=== PATIENT | male | born 1955 | race Caucasian/White ===

== ENCOUNTER 2019-08-07 05:46 | Day surgery (SDC) | payer BC ==
[2019-08-07] MEDS ORDERED: Lactated Ringers 1,000 ML IV SCH (07:00)
[2019-08-07] MEDS ORDERED: DIPRIVAN 200 MG/20 ML IV ONE ×2 (08:20→08:25)
[2019-08-07 09:14] VITALS: O2SAT 98
--- NOTE | 2019-08-07 09:19 | OP ---
SURGERY DATE/TIME: 08/07/2019 0805 PREOPERATIVE DIAGNOSIS: Screening colonoscopy. POSTOPERATIVE DIAGNOSIS: Sessile colon polyp x2. PROCEDURE: Colonoscopy. SURGEON: Lex Roland M.D. ANESTHESIA: MAC by Marco Antonio Cohen CRNA. ESTIMATED BLOOD LOSS: Minimal. SPECIMENS: Two hot forceps polypectomies, one from the sigmoid and one from the rectum. DESCRIPTION OF PROCEDURE: After informed written consent was obtained, the patient was taken to the endoscopy suite. He underwent monitored anesthesia after he was placed in left lateral decubitus position. Digital rectal exam showed normal sphincter tone and no internal lesions. The scope was inserted into the rectum and sequentially the entire colonic mucosa was traversed. The level of cecum was reached and verified with direct visualization of ileocecal valve. Upon withdrawal a small sessile polyp was encountered in the proximal sigmoid colon and was grasped with forceps, cauterized and removed in its entirety with good hemostasis following removal. Upon further withdrawal and inspection, there was another small sessile polyp just beyond the third valve of Kamara in the proximal rectum. It was grasped likewise with forceps, cauterized and removed in its entirety with good hemostasis. No other lesions were encountered. The scope was removed and the patient was transferred to the recovery room in good condition.
[2019-08-07 09:29] VITALS: BP 131/85; PULSE 84
== END 2019-08-07 09:35 | disposition home or self-care (01) ==
LOC: SDC 05:46
PROVIDERS: ATTEND Family Medicine
DX: Z12.11 Encounter for screening for malignant neoplasm of colon (principal); K63.5 Polyp of colon; D12.8 Benign neoplasm of rectum
CPT/HCPCS: 88305; J2704

== ENCOUNTER 2022-10-04 06:57 | Inpatient (IN) | payer MEDICARE ==
[2022-10-04] MEDS ORDERED: DUONEB 0.5-3 MG/3 ml Neb IH ONE ×2 (07:12→07:13)
--- NOTE | 2022-10-04 07:35 | ERPHSYRPT ---
- History of Present Illness Source: patient Exam Limitations: clinical condition Patient Subjective Stated Complaint: Pt states "I have been short of breath for a couple weeks but it has gotten really bad in the last couple of days." Triage Nursing Assessment: Pt presented alert and oriented X 3, skin pwd. Pt ambulates with an upright steady gait, ablet o speak in clear full sentences pt tachypneic with low O2 sats in the mid 80s. Pt stated he has COPD. Physician History: 67 yo wm w h/o COPD/HTN/DM/Afib on eliquis/cirrhosis/tobacco abuse/alcohol abuse presents w progressive dyspnea x 2 wks which is worse upon exertion. Pt has had a worsening cough over the last 2 wks which has become more productive. He has coryza but denies fever/N/V/D/melena/hematochezia/hemoptysis. Pt states that his lower extremities have become edematous also but denies h/o CHF. He is not on home O2 but uses CPAP at night. Timing/Duration: other (2 wks) Activities at Onset: rest Severity of Dyspnea-Max: severe Severity of Dyspnea-Current: severe Possible Cause: frequent episodes Modifying Factors: Improves With: activity, coughing Associated Symptoms: cough, edema, ankle swelling, leg swelling, productive cough, No fever Allergies/Adverse Reactions: No Known Drug Allergies Allergy (Verified 08/07/19 06:13) Home Medications: Amlodipine Besylate 5 mg PO DAILY 10/04/22 [History] Apixaban [Eliquis 5 mg Tablet] 5 mg PO BID 10/04/22 [History] Budesonide/Formoterol Fumarate [Budesonide-Formoterol 160-4.5] 1 unit IH DAILY 10/04/22 [History] Ipratropium/Albuterol Sulfate [Iprat-Albut 0.5-3(2.5) mg/3 ml] 1 unit IH QID 10/04/22 [History] Losartan/Hydrochlorothiazide [Hyzaar 100-12.5 Tablet] 5 tab PO DAILY 10/04/22 [History] Metoprolol Succinate [Toprol Xl] 200 mg PO DAILY 10/04/22 [History] Omeprazole 20 mg PO DAILY 10/04/22 [History] glipiZIDE [Glipizide] 5 mg PO DAILY 10/04/22 [History] Hx Tetanus, Diphtheria Vaccination/Date Given: Yes Hx Influenza Vaccination/Date Given: Yes Hx Pneumococcal Vaccination/Date Given: No Immunizations Up to Date: Yes Travel Risk - International Travel Have you traveled outside of the country in past 3 weeks: No - Coronavirus Screening Symptoms: Shortness of Breath Close contact with a COVID-19 positive Pt in past 14-21 Days: No - Vaccine Status Have you recieved a Covid-19 vaccination: Yes 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: [employer] - Vaccination Dates Date of 2cond Vaccination (if applicable): 2020 - Review of Systems Constitutional: No Symptoms, Lethargy, Malaise Eyes: No Symptoms Ears, Nose, & Throat: No Symptoms, Nose Congestion, Nose Discharge Respiratory: No Symptoms, Cough, Dyspnea, Dyspnea on Exertion (MALDONADO) Cardiac: No Symptoms Abdominal/Gastrointestinal: No Symptoms Genitourinary Symptoms: No Symptoms Musculoskeletal: No Symptoms Skin: No Symptoms Neurological: No Symptoms Psychological: No Symptoms Endocrine: No Symptoms Hematologic/Lymphatic: No Symptoms Immunological/Allergic: No Symptoms - Past Medical History Pertinent Past Medical History: Yes Neurological History: No Pertinent History ENT History: No Pertinent History Cardiac History: Arrhythmia, High Cholesterol, Hypertension Respiratory History: COPD Endocrine Medical History: Diabetes Type II, Liver Disease Musculoskeletal History: Fractures GI Medical History: Diverticulitis, Gallbladder Disease, Other History: No Pertinent History Psycho-Social History: No Pertinent History Male Reproductive Disorders: No Pertinent History Other Medical History: YEARS AGO FX RIGHT ANKLE. - Past Surgical History Past Surgical History: Yes Neuro Surgical History: No Pertinent History Cardiac: No Pertinent History Respiratory: Chest Surgery Gastrointestinal: No Pertinent History, Cholecystectomy Genitourinary: No Pertinent History Musculoskeletal: No Pertinent History Male Surgical History: No Pertinent History Other Surgical History: had non-cancerous nodule removed from left lung years ago and has pen in place from the surgery. - Social History Smoking Status: Current every day smoker How long have you smoked: 50 years Exposure to second hand smoke: Yes Drug Use: none Patient Lives Alone: No - Nursing Vital Signs Nursing Vital Signs: Initial Vital Signs Temperature 97.7 F 10/04/22 06:58 Pulse Rate 104 H 10/04/22 06:58 Respiratory Rate 28 H 10/04/22 06:58 Blood Pressure 118/89 10/04/22 06:58 O2 Sat by Pulse Oximetry 85 L 10/04/22 06:58 Pain Scale Pain Intensity 0 Tachy/hypoxic/Tachyneic - Physical Exam General Appearance: mild distress Eye Exam: PERRL/EOMI, eyes nml inspection Ears, Nose, Throat Exam: hearing grossly normal, normal ENT inspection, normal pharynx Neck Exam: normal inspection, non-tender, supple, full range of motion, No Brudzinski, No Kernig's, No meningismus, No carotid bruit Respiratory Exam: respiratory distress (Mild-moderate), diminished breath sounds (Decreased BS B), prolonged expirations Cardiovascular/Chest Exam: other (Afib-Irregular rhythm, but rarte controlled) Abdominal/Gastrointestinal Exam: soft (Morbidly obese), normal bowel sounds, No tenderness Extremity Exam: no calf tenderness, pedal edema (2+ pre-tibial edema) Peripheral Pulses Exam: carotid (R): 2+, carotid (L): 2+ Neurologic Exam: alert, oriented x 3, cooperative, 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 nml as tested, normal mood/affect, nml station & gait Skin Exam: normal color, warm, dry Lymphatic Exam: No adenopathy SpO2 Interpretation: normal SpO2: 95 O2 Delivery: Oxymask (4L Oxymask) - Course Nursing assessment & vital signs reviewed: Yes EKG Interpreted by Me: RATE (Afib/No P waves/Normal QT-QTc/Qwaves 3 and AVF/RBBB/No acute ST segment changes) - Radiology Exams Chest X-ray Interpretation: Interpreted by me (Hazy bibasilar infiltraes) - CT Exams Chest CT Interpretation: Discussed w/radiologist (CT chest wo/RLL opacities/atelectasis) Ordered Tests: Active Orders 24 hr Category Date Time Status EKG-ER Only STAT Care 10/04/22 07:12 Completed Consistent Carbohydrate Diet 2000 Calorie Diet 10/04/22 Lunch Active CHEST 1 VIEW (PORTABLE) Stat Exams 10/04/22 07:12 Completed CHEST WITHOUT CONTRAST [CT] Stat Exams 10/04/22 08:24 Completed Alcohol [ETHYL ALCOHOL] Stat Lab 10/04/22 07:30 Completed BLOOD CULTURE Stat Lab 10/04/22 07:30 Received CBC W DIFF AM.LAB Lab 10/05/22 04:00 Ordered CBC W DIFF Stat Lab 10/04/22 07:30 Completed CMP AM.LAB Lab 10/05/22 04:00 Ordered CMP Stat Lab 10/04/22 07:30 Completed Lactic Acid Stat Lab 10/04/22 07:59 Completed NT PRO BNP Stat Lab 10/04/22 07:30 Completed PROTIME WITH INR Stat Lab 10/04/22 07:30 Completed PTT Stat Lab 10/04/22 07:30 Completed TROPONIN Q4H Lab 10/04/22 07:30 Completed TROPONIN Q4H Lab 10/04/22 11:15 Ordered TROPONIN Q4H Lab 10/04/22 15:15 Ordered Transfer Order Routine Transfer 10/04/22 Completed Medication Summary Generic Name Dose Route Start Last Admin Trade Name Freq PRN Reason Stop Dose Admin Albuterol/Ipratropium 3 ml 10/04/22 11:00 Ipratropium/Albuterol Sulfate 3 Ml Ampul.Neb IH 11/03/22 10:59 Q4HRT VANESSA Sodium Chloride 1,000 mls @ 100 mls/hr 10/04/22 09:45 Sodium Chloride 0.9% 1000 Ml IV 11/03/22 09:44 .Q10H VANESSA Ceftriaxone Sodium/Dextrose 1 g in 50 mls @ 100 mls/hr 10/05/22 10:00 Rocephin 1 Gm-D5w 50 Ml Bag IV 10/08/22 09:59 Q24H10 VANESSA Azithromycin 500 mg in 250 mls @ 250 mls/hr 10/05/22 10:00 Zithromax 500 Mg/ 250 Ml Nacl Premix IV 11/04/22 09:59 Q24H10 VANESSA Insulin Human Lispro 0 unit 10/04/22 09:33 Insulin Lispro 1 Unit SQ 11/03/22 09:32 UD PRN HYPERGLYCEMIA Ondansetron HCl 4 mg 10/04/22 09:33 Ondansetron Hcl 4 Mg/2 Ml Vial IV 11/03/22 09:32 Q6H PRN PRN NAUSEA/VOMITING Pantoprazole Sodium 40 mg 10/04/22 11:00 Pantoprazole 40 Mg Vial IV 11/03/22 10:59 Q24H10 VANESSA Discontinued Medications Generic Name Dose Route Start Last Admin Trade Name Freq PRN Reason Stop Dose Admin Albuterol Sulfate 2.5 mg 10/04/22 08:19 10/04/22 08:23 Albuterol Sulfate 2.5 Mg/3 Ml Neb IH 10/04/22 08:20 2.5 mg STAT ONE Administration Albuterol Sulfate Confirm 10/04/22 08:22 Albuterol Sulfate 2.5 Mg/3 Ml Neb Administered 10/04/22 08:23 Dose 2.5 mg IH .STK-MED ONE Albuterol/Ipratropium 3 ml 10/04/22 07:13 10/04/22 07:15 Ipratropium/Albuterol Sulfate 3 Ml Ampul.Neb IH 10/04/22 07:14 3 ml STAT ONE Administration Albuterol/Ipratropium Confirm 10/04/22 07:12 Ipratropium/Albuterol Sulfate 3 Ml Ampul.Neb Administered 10/04/22 07:13 Dose 3 ml IH .STK-MED ONE Ceftriaxone Sodium/Dextrose 1 g in 50 mls @ 100 mls/hr 10/04/22 08:02 10/04/22 08:47 Rocephin 1 Gm-D5w 50 Ml Bag IV 10/04/22 08:31 Infused STAT STA Infusion Ceftriaxone Sodium/Dextrose Confirm 10/04/22 08:11 Rocephin 1 Gm-D5w 50 Ml Bag Administered 10/04/22 08:12 Dose 1 g in 50 mls @ ud IV .STK-MED ONE Azithromycin 500 mg in 250 mls @ 250 mls/hr 10/04/22 09:15 10/04/22 09:20 Zithromax 500 Mg/ 250 Ml Nacl Premix IV 10/04/22 10:14 250 mls/hr STAT STA 250 mls/hr Administration Azithromycin Confirm 10/04/22 09:17 Zithromax 500 Mg/ 250 Ml Nacl Premix Administered 10/04/22 09:18 Dose 500 mg in 250 mls @ ud IV .STK-MED ONE Lab/Rad Data: Laboratory Result Diagrams 10/04/22 07:30 10/04/22 07:30 Laboratory Results 10/04/22 10/04/22 10/04/22 Range/Units 07:59 07:35 07:30 WBC (4.0-10.5) x10^3/uL RBC (4.1-5.6) x10^6/uL Hgb (12.5-18.0) g/dL Hct (42-50) % MCV (78-100) fL MCH (26-32) pg MCHC (32-36) g/dL RDW (11.5-14.0) % Plt Count (150-450) x10^3/uL MPV (7.5-11.0) fL Gran % (36.0-66.0) % Immature Gran % (Auto) (0.00-0.4) % Nucleat RBC Rel Count (0.00-0.1) % Eos # (Auto) (0-0.5) x10^3/uL Immature Gran # (Auto) (0.00-0.03) x10^3u/L Absolute Lymphs (auto) (1.0-4.6) x10^3/uL Absolute Monos (auto) (0.0-1.3) x10^3/uL Absolute Nucleated RBC (0.00-0.01) x10^3u/L Lymphocytes % (24.0-44.0) % Monocytes % (0.0-12.0) % Eosinophils % (0.00-5.0) % Basophils % (0.0-0.4) % Absolute Granulocytes (1.4-6.9) x10^3/uL Basophils # (0-0.4) x10^3/uL PT (9.4-12.5) SECONDS INR (0.8-3.0) APTT (25.1-36.5) SECONDS Sodium (137-145) mmol/L Potassium (3.5-5.1) mmol/L Chloride (98-107) mmol/L Carbon Dioxide (22-30) mmol/L Anion Gap (5-15) MEQ/L BUN (9-20) mg/dL Creatinine (0.66-1.25) mg/dL Estimated GFR ML/MIN Glucose (74-106) mg/dL Lactic Acid 1.9 (0.4-2.0) Calcium (8.4-10.2) mg/dL Total Bilirubin (0.2-1.3) mg/dL AST (17-59) U/L ALT (0-50) U/L Alkaline Phosphatase (38-126) U/L Troponin I (0.000-0.034) ng/mL NT-Pro-B Natriuret Pep (0-900) pg/mL Serum Total Protein (6.3-8.2) g/dL Albumin (3.5-5.0) g/dL Ethyl Alcohol < 10 (0-10) mg/dL Influenza Type A Ag NEGATIVE (NEGATIVE) Influenza Type B Ag NEGATIVE (NEGATIVE) RSV (PCR) NEGATIVE (Negative) SARS-CoV-2 (PCR) NEGATIVE (NEGATIVE) 10/04/22 10/04/22 10/04/22 Range/Units 07:30 07:30 07:30 WBC (4.0-10.5) x10^3/uL RBC (4.1-5.6) x10^6/uL Hgb (12.5-18.0) g/dL Hct (42-50) % MCV (78-100) fL MCH (26-32) pg MCHC (32-36) g/dL RDW (11.5-14.0) % Plt Count (150-450) x10^3/uL MPV (7.5-11.0) fL Gran % (36.0-66.0) % Immature Gran % (Auto) (0.00-0.4) % Nucleat RBC Rel Count (0.00-0.1) % Eos # (Auto) (0-0.5) x10^3/uL Immature Gran # (Auto) (0.00-0.03) x10^3u/L Absolute Lymphs (auto) (1.0-4.6) x10^3/uL Absolute Monos (auto) (0.0-1.3) x10^3/uL Absolute Nucleated RBC (0.00-0.01) x10^3u/L Lymphocytes % (24.0-44.0) % Monocytes % (0.0-12.0) % Eosinophils % (0.00-5.0) % Basophils % (0.0-0.4) % Absolute Granulocytes (1.4-6.9) x10^3/uL Basophils # (0-0.4) x10^3/uL PT 12.4 (9.4-12.5) SECONDS INR 1.19 (0.8-3.0) APTT 35.0 (25.1-36.5) SECONDS Sodium 138 (137-145) mmol/L Potassium 4.0 (3.5-5.1) mmol/L Chloride 100 (98-107) mmol/L Carbon Dioxide 31 H (22-30) mmol/L Anion Gap 11.2 (5-15) MEQ/L BUN 29 H (9-20) mg/dL Creatinine 0.76 (0.66-1.25) mg/dL Estimated GFR > 60.0 ML/MIN Glucose 125 H (74-106) mg/dL Lactic Acid (0.4-2.0) Calcium 9.2 (8.4-10.2) mg/dL Total Bilirubin 1.90 H (0.2-1.3) mg/dL AST 27 (17-59) U/L ALT 26 (0-50) U/L Alkaline Phosphatase 87 (38-126) U/L Troponin I < 0.012 (0.000-0.034) ng/mL NT-Pro-B Natriuret Pep 766 (0-900) pg/mL Serum Total Protein 7.6 (6.3-8.2) g/dL Albumin 4.1 (3.5-5.0) g/dL Ethyl Alcohol (0-10) mg/dL Influenza Type A Ag (NEGATIVE) Influenza Type B Ag (NEGATIVE) RSV (PCR) (Negative) SARS-CoV-2 (PCR) (NEGATIVE) 10/04/22 Range/Units 07:30 WBC 13.4 H (4.0-10.5) x10^3/uL RBC 5.26 (4.1-5.6) x10^6/uL Hgb 16.1 (12.5-18.0) g/dL Hct 50.6 H (42-50) % MCV 96.2 (78-100) fL MCH 30.6 (26-32) pg MCHC 31.8 L (32-36) g/dL RDW 13.9 (11.5-14.0) % Plt Count 271 (150-450) x10^3/uL MPV 10.1 (7.5-11.0) fL Gran % 81.8 H (36.0-66.0) % Immature Gran % (Auto) 0.4 (0.00-0.4) % Nucleat RBC Rel Count 0.0 (0.00-0.1) % Eos # (Auto) 0.01 (0-0.5) x10^3/uL Immature Gran # (Auto) 0.06 H (0.00-0.03) x10^3u/L Absolute Lymphs (auto) 0.83 L (1.0-4.6) x10^3/uL Absolute Monos (auto) 1.50 H (0.0-1.3) x10^3/uL Absolute Nucleated RBC 0.00 (0.00-0.01) x10^3u/L Lymphocytes % 6.2 L (24.0-44.0) % Monocytes % 11.2 (0.0-12.0) % Eosinophils % 0.1 (0.00-5.0) % Basophils % 0.3 (0.0-0.4) % Absolute Granulocytes 10.97 H (1.4-6.9) x10^3/uL Basophils # 0.04 (0-0.4) x10^3/uL PT (9.4-12.5) SECONDS INR (0.8-3.0) APTT (25.1-36.5) SECONDS Sodium (137-145) mmol/L Potassium (3.5-5.1) mmol/L Chloride (98-107) mmol/L Carbon Dioxide (22-30) mmol/L Anion Gap (5-15) MEQ/L BUN (9-20) mg/dL Creatinine (0.66-1.25) mg/dL Estimated GFR ML/MIN Glucose (74-106) mg/dL Lactic Acid (0.4-2.0) Calcium (8.4-10.2) mg/dL Total Bilirubin (0.2-1.3) mg/dL AST (17-59) U/L ALT (0-50) U/L Alkaline Phosphatase (38-126) U/L Troponin I (0.000-0.034) ng/mL NT-Pro-B Natriuret Pep (0-900) pg/mL Serum Total Protein (6.3-8.2) g/dL Albumin (3.5-5.0) g/dL Ethyl Alcohol (0-10) mg/dL Influenza Type A Ag (NEGATIVE) Influenza Type B Ag (NEGATIVE) RSV (PCR) (Negative) SARS-CoV-2 (PCR) (NEGATIVE) - Progress Progress: improved Progress Note: 10/04/22 09:18 Duoneb/Albuterol x1 w improvement in air flow Blood cultures x2 Rocephin 1gm IV Zithromax 500mg IV 10/04/22 09:[address] Paz Discussed with Dr.: Whitley (Obs per Dr. Paz) Counseled pt/family regarding: lab results, diagnosis, need for follow-up, rad results - Departure Departure Disposition: Observation Clinical Impression: Pneumonia, COPD (chronic obstructive pulmonary disease) Condition: Stable Critical Care Time: Yes Critical Care Time(excluding separately billable procedures): Critical 30-74 mins
[2022-10-04 07:37] LABS: Absolute Neutrophil Ct (ANC) 10.97 x10^3/uL (1.4-6.9); Basophil (Absolute #) 0.04 x10^3/uL (0-0.4); Eosinophil % 0.1 % (0.00-5.0); Eosinophil (Absolute #) 0.01 x10^3/uL (0-0.5); Hematocrit 50.6 % (42-50); Hemoglobin 16.1 g/dL (12.5-18.0); Lymphocyte (Absolute #) 0.83 x10^3/uL (1.0-4.6); Lymphocytes % 6.2 % (24.0-44.0); Mean Cell Volume 96.2 fL (78-100); Mean Corpuscular Hemoglobin 30.6 pg (26-32); Mean Corpuscular Hgb Concent. 31.8 g/dL (32-36); Mean Platelet Volume 10.1 fL (7.5-11.0); Monocytes % 11.2 % (0.0-12.0); Neutrophil % 81.8 % (36.0-66.0); Platelet Count 271 x10^3/uL (150-450); Red Blood Count 5.26 x10^6/uL (4.1-5.6); Red Cell Distribution Width 13.9 % (11.5-14.0); White Blood Count 13.4 x10^3/uL (4.0-10.5)
[2022-10-04 07:52] LABS: INR 1.19 (0.8-3.0); PROTIME 12.4 SECONDS (9.4-12.5)
[2022-10-04 07:59] LABS: ALBUMIN 4.1 g/dL (3.5-5.0); ALKALINE PHOSPHATASE 87 U/L (38-126); ANION GAP 11.2 MEQ/L (5-15); BLOOD UREA NITROGEN 29 mg/dL (9-20); CHLORIDE 100 mmol/L (98-107); Calcium 9.2 mg/dL (8.4-10.2); Carbon Dioxide 31 mmol/L (22-30); Creatinine 1 0.76 mg/dL (0.66-1.25); EST GLOMERULAR FILTRATION RATE > 60.0 ML/MIN; Glucose 125 mg/dL (74-106); NT PRO BNP 766 pg/mL (0-900); SGOT/AST 27 U/L (17-59); SGPT/ALT 26 U/L (0-50); SODIUM 138 mmol/L (137-145); Total Protein 7.6 g/dL (6.3-8.2)
[2022-10-04] MEDS ORDERED: ROCEPHIN 1 Gm-D5w 50 ml Bag** 1 G/50 ML IVPB IV STA (08:02)
[2022-10-04] MEDS ORDERED: ROCEPHIN 1 Gm-D5w 50 ml Bag** 1 G/50 ML IVPB IV ONE (08:11)
[2022-10-04] MEDS ORDERED: PROVENTIL 2.5 MG/3 ML NEB IH ONE ×2 (08:19→08:22)
[2022-10-04 08:27] LABS: INFLUENZA A NEGATIVE (NEGATIVE); INFLUENZA B NEGATIVE (NEGATIVE); RESPIRATORY SYNCTIAL VIRUS NEGATIVE (Negative); SARS-CoV-2 Xpert Express NEGATIVE (NEGATIVE)
--- NOTE | 2022-10-04 09:14 | XRAY ---
Indication: Short of breath and congestion. COPD. Multiple contiguous axial images obtained through the chest without contrast. Comparison: None Study degraded by respiration artifact. Query subtle right lower lobe interstitial alveolar opacities. Right middle lobe and lingula demonstrates subsegmental atelectasis. No consolidation/effusion. Heart not enlarged with prominent epicardiac fat. Small right hilar calcified node. Incidental left hemidiaphragm elevation. Bony thorax intact. Limited upper abdomen demonstrates numerous hepatic/splenic calcified granulomas, and 1.8 cm left adrenal adenoma, and incompletely visualized left renal cysts, largest 1.5 cm upper pole. Impression: 1. Respiration artifact. Query subtle right lower lobe interstitial alveolar opacities. 2. Right middle lobe and lingula subsegmental atelectasis. 3. Chronic findings including prominent epicardiac fat, left hemidiaphragm elevation, left adrenal adenoma, left renal cysts, chronic bony findings, and old granulomatous disease.
[2022-10-04] MEDS ORDERED: Zithromax 500 MG/ 250 ML NaCl Premix 500 MG/250 ML IVPB IV STA (09:15)
--- NOTE | 2022-10-04 09:16 | XRAY ---
Indication: Cough and short of breath. Hallucinations. Comparison: None Portable chest demonstrates left hemidiaphragm elevation with hazy bibasilar infiltrates versus atelectasis. Remaining heart and bony thorax unremarkable.
[2022-10-04] MEDS ORDERED: Zithromax 500 MG/ 250 ML NaCl Premix 500 MG/250 ML IVPB IV ONE (09:17)
[2022-10-04] MEDS ORDERED: Zofran 4 MG/2 ML VIAL IV PRN (09:33)
[2022-10-04] MEDS ORDERED: PROTONIX 40 MG IV IV SCH (11:00)
[2022-10-04] MEDS: DUONEB 0.5-3 MG/3 ml Neb IH SCH ×4 (11:18→22:53)
[2022-10-04] MEDS ORDERED: PATIENT OWN MEDICATION IH SCH (13:00)
[2022-10-04] MEDS: hydroDIURIL 25 MG PO SCH (14:28)
[2022-10-04] MEDS: NORVASC 5 MG PO SCH (14:29)
[2022-10-04] MEDS: Toprol Xl 100 MG PO SCH (14:30)
[2022-10-04] MEDS: Cozaar 50 MG PO SCH (14:31)
[2022-10-04] MEDS: ELIQUIS 2.5 MG TABLET PO SCH ×2 (14:32→20:04)
[2022-10-04] MEDS: Protonix 40MG Tablet PO SCH (14:32)
[2022-10-04] MEDS: PATIENT OWN MEDICATION IH SCH (18:40)
[2022-10-04] MEDS ORDERED: solu-MEDROL ONE ×2 (18:58→23:40)
[2022-10-04] MEDS ORDERED: Sterile H2O 10 ml IJ ONE ×2 (18:58→23:40)
[2022-10-04] MEDS: solu-MEDROL 125 MG, Sterile H2O 10 ml 2 ML IV SCH ×4 (19:12→23:40)
[2022-10-04] MEDS: MOTRIN 600 MG PO PRN (20:06)
[2022-10-04] MEDS: Ativan 2 MG/1 ML VIAL IV PRN (20:07)
[2022-10-05] MEDS: Ativan 2 MG/1 ML VIAL IV PRN ×5 (01:15→20:29)
[2022-10-05] MEDS ORDERED: PHARMACY DOSING REQUIRED: VANCOMYCIN MC ONE (02:00)
[2022-10-05] MEDS ORDERED: VANCOMYCIN 2 GRAM/400 ML BAG 2 GM/400 ML PIGGYBACK IV SCH (03:00)
[2022-10-05 03:35] LABS: A-aADO2 143; ABG HEMOGLOBIN 16.3; ABG POTASSIUM 4.6 (3.5-5.1); ARTERIAL BLD GAS O2 SATURATION 88.6 % (95-100); ARTERIAL BLOOD GAS BASE EXCESS 4.1 (-2.0-2.0); ARTERIAL BLOOD GAS FIO2 45 %; ARTERIAL BLOOD GAS PO2 62 mmHg (75-100); CARBOXYHEMOGLOBIN 1.2 % THgb (0.0-6.9); HCO3- 36.3 (22-28); HGB O2 SAT 87.4 g/dF (94-100); Methhemoglobin 0.1 % (1.4-1.5)
[2022-10-05 03:36] LABS: ARTERIAL BLOOD GAS PCO2 93 mmHg (35-45)
[2022-10-05 03:37] LABS: ABG SITE RIGHT RADIAL; ALLEN TEST OK? YES
[2022-10-05] MEDS: DUONEB 0.5-3 MG/3 ml Neb IH SCH ×6 (03:44→22:18)
[2022-10-05] MEDS ORDERED: Lasix 40 MG/4 ML IV ONE ×2 (03:45→06:00)
[2022-10-05] MEDS ORDERED: Lasix 40 MG/4 ML ONE (03:46)
[2022-10-05 04:59] LABS: Absolute Neutrophil Ct (ANC) 9.43 x10^3/uL (1.4-6.9); Basophil (Absolute #) 0.02 x10^3/uL (0-0.4); Eosinophil (Absolute #) 0 x10^3/uL (0-0.5); Hematocrit 50.2 % (42-50); Hemoglobin 15.5 g/dL (12.5-18.0); Lymphocyte (Absolute #) 0.42 x10^3/uL (1.0-4.6); Lymphocytes % 4.2 % (24.0-44.0); Mean Corpuscular Hemoglobin 30.6 pg (26-32); Mean Corpuscular Hgb Concent. 30.9 g/dL (32-36); Mean Platelet Volume 9.8 fL (7.5-11.0); Monocyte (Absolute #) 0.13 x10^3/uL (0.0-1.3); Monocytes % 1.3 % (0.0-12.0); Neutrophil % 93.6 % (36.0-66.0); Platelet Count 283 x10^3/uL (150-450); Red Blood Count 5.07 x10^6/uL (4.1-5.6); Red Cell Distribution Width 14.2 % (11.5-14.0); White Blood Count 10.1 x10^3/uL (4.0-10.5)
[2022-10-05 05:31] LABS: ALBUMIN 3.7 g/dL (3.5-5.0); ALKALINE PHOSPHATASE 72 U/L (38-126); ANION GAP 7.8 MEQ/L (5-15); BLOOD UREA NITROGEN 41 mg/dL (9-20); CHLORIDE 98 mmol/L (98-107); Calcium 8.9 mg/dL (8.4-10.2); Carbon Dioxide 36 mmol/L (22-30); Creatinine 1 1.03 mg/dL (0.66-1.25); EST GLOMERULAR FILTRATION RATE > 60.0 ML/MIN; Glucose 169 mg/dL (74-106); Potassium 4.8 mmol/L (3.5-5.1); SGOT/AST 23 U/L (17-59); SGPT/ALT 27 U/L (0-50); SODIUM 138 mmol/L (137-145); Total Protein 7.1 g/dL (6.3-8.2)
[2022-10-05] MEDS ORDERED: solu-MEDROL ONE (05:36)
[2022-10-05] MEDS ORDERED: Sterile H2O 10 ml IJ ONE (05:36)
[2022-10-05] MEDS: solu-MEDROL 125 MG, Sterile H2O 10 ml 2 ML IV SCH ×6 (05:38→17:01)
[2022-10-05 06:47] LABS: Slide Review 1 YES
[2022-10-05] MEDS: PATIENT OWN MEDICATION IH SCH (07:05)
[2022-10-05] MEDS: Sodium Chloride 0.9% 1000 ML 1,000 ML IV SCH ×3 (07:53→09:55)
[2022-10-05 08:14] LABS: A-aADO2 172; ABG HEMOGLOBIN 16.3; ABG POTASSIUM 4.4 (3.5-5.1); ARTERIAL BLD GAS O2 SATURATION 94.7 % (95-100); ARTERIAL BLOOD GAS BASE EXCESS 7.3 (-2.0-2.0); ARTERIAL BLOOD GAS FIO2 50 %; ARTERIAL BLOOD GAS PO2 77 mmHg (75-100); ARTERIAL BLOOD GAS pH 7.26 (7.35-7.45); CARBOXYHEMOGLOBIN 0.9 % THgb (0.0-6.9); HCO3- 38.6 (22-28); HGB O2 SAT 93.8 g/dF (94-100)
[2022-10-05 08:15] LABS: ARTERIAL BLOOD GAS PCO2 86 mmHg (35-45)
[2022-10-05 08:58] LABS: ABG SITE LEFT RADIAL
--- NOTE | 2022-10-05 09:09 | XRAY ---
Indication: Pulmonary edema. Comparison: One day earlier Portable chest again demonstrates bibasilar infiltrates/atelectasis, improved on the right and worsened on the left. New small left effusion. Heart not enlarged. Again chronic left hemidiaphragm elevation. Comment: Preliminary interpretation made by [facility]. No critical discrepancy.
[2022-10-05] MEDS: hydroDIURIL 25 MG PO SCH (09:45)
[2022-10-05] MEDS: ELIQUIS 2.5 MG TABLET PO SCH (09:45)
[2022-10-05] MEDS: Cozaar 50 MG PO SCH (09:45)
[2022-10-05] MEDS: NORVASC 5 MG PO SCH (09:45)
[2022-10-05] MEDS: Toprol Xl 100 MG PO SCH (09:46)
[2022-10-05] MEDS: Protonix 40MG Tablet PO SCH (09:46)
[2022-10-05] MEDS: PROTONIX 40 MG IV IV SCH (09:55)
[2022-10-05] MEDS: Furosemide 100mg/10 ml Vial IV SCH (09:55)
[2022-10-05] MEDS ORDERED: [UNRECOGNIZED DRUG - OTHER] PO SCH (10:00)
[2022-10-05] MEDS ORDERED: NON-FORMULARY ITEM (Omeprazole [Omeprazole] 20 MG Capsule.Dr) PO SCH (10:00)
[2022-10-05] MEDS ORDERED: ROCEPHIN 1 Gm-D5w 50 ml Bag** 1 G/50 ML IVPB IV SCH (10:00)
[2022-10-05] MEDS ORDERED: Zithromax 500 MG/ 250 ML NaCl Premix 500 MG/250 ML IVPB IV SCH (10:00)
[2022-10-05] MEDS ORDERED: HYDROCHLOROTHIAZIDE PO SCH (10:00)
[2022-10-05] MEDS ORDERED: LOSARTAN PO SCH (10:00)
[2022-10-05] MEDS ORDERED: METOPROLOL SUCCINATE 200 MG PO SCH (10:00)
[2022-10-05] MEDS ORDERED: ENOXAPARIN SODIUM SQ SCH (10:00)
[2022-10-05] MEDS ORDERED: NON-FORMULARY ITEM (Budesonide/Formoterol Fumarate [Budesonide-Formoterol 160-4.5] 10.2 GM IH SCH (10:00)
[2022-10-05] MEDS: PIPERACILLIN/TAZOBACTAM 4.5 GM in Sodium Chloride 100ML MINI-BAG PLUS 100 ML IV SCH ×2 (10:02→16:41)
[2022-10-05] MEDS: MORPHINE SULFATE 2 MG INJ IV PRN ×3 (10:04→22:16)
--- NOTE | 2022-10-05 11:32 | PCM.HP ---
History of Present Illness - Chief Complaint Chief Complaint: COPD, RESP FAILURE History of Present Illness: is a 67 year old male pt of mine seen earlier this morning who came in through ER with COPD exacerbation and respiratory distress. He has a PMHx COPD, afib (on Eliquis), COPD, HTN, DMII, cirrhosis of the liver, and EtOH abuse. He had been sick for over a week but his couldn't convince him to come to the hospital. He had increased cough and had to stand up in order to breathe, so hasn't really slept in about a week. The history is per the medical record and the pt's , who is at bedside. Apparently he was also having MALDONADO and productive cough. Did have 1-2+ pretibial edema in ER. RLL infiltrate seen on CT, so he was started on rocephin and zithromax. Pt apparently drinks 2 fifths of alcohol a week, a fact that he was able to hide from his until he started feeling so ill and not leaving the house. Last night he was anxious and was given some ativan; he laid down and soon had sx of pulmonary edema (coughing up frothy pink) - was given lasix 40mg IV x 1, which was repeated a couple of hours later. Had 500mL out of urine last night with catheter placement, and another 400 cc since then. His BNP was normal on admission but elevated this morning. His oxygenation decreased to 70s with lying down, so he was started on CPAP. This was insufficient, so he was started on Bipap and is now on AVAPS. Dr. Benson was consulted, thank you, and per ABG results changed settings to RR 22, PEEP 8, TV 550 (on 65%). WBC 13.4 on admission, 10.1 now (gran 93.6%). Blood culture returned + GPC so IV vancomycin was added to antibiotic regimen. This morning, rocephin and zithromax were stopped and IV zosyn was started in addition to the vancomycin. - Review of Systems All Other Systems: Unable due to condition Medications & Allergies Home Medications: Home Medication List Amlodipine Besylate 5 mg PO DAILY 10/04/22 [History Confirmed 10/04/22] Apixaban [Eliquis 5 mg Tablet] 5 mg PO BID 10/04/22 [History Confirmed 10/04/22] Budesonide/Formoterol Fumarate [Budesonide-Formoterol 160-4.5] 1 unit IH DAILY 10/04/22 [History Confirmed 10/04/22] Ipratropium/Albuterol Sulfate [Iprat-Albut 0.5-3(2.5) mg/3 ml] 1 unit IH QID 10/04/22 [History Confirmed 10/04/22] Losartan/Hydrochlorothiazide [Hyzaar 100-12.5 Tablet] 1 tab PO DAILY 10/04/22 [History Confirmed 10/04/22] Metoprolol Succinate [Toprol Xl] 200 mg PO DAILY 10/04/22 [History Confirmed 10/04/22] Omeprazole 20 mg PO DAILY 10/04/22 [History Confirmed 10/04/22] glipiZIDE [Glipizide] 5 mg PO DAILY 10/04/22 [History Confirmed 10/04/22] Allergies/Adverse Reactions: Allergies Allergy/AdvReac Type Severity Reaction Status Date / Time No Known Drug Allergies Allergy Verified 08/07/19 06:13 - Past Medical History Past Medical History: Yes Neurological History: No Pertinent History ENT History: No Pertinent History Cardiac History: Arrhythmia, High Cholesterol, Hypertension Respiratory History: COPD Endocrine Medical History: Diabetes Type II, Liver Disease Musculoskelatal History: Fractures GI Medical History: Diverticulitis, Gallbladder Disease, Other History: No Pertinent History Pyscho-Social History: No Pertinent History Male Reproductive Disorders: No Pertinent History Comment: YEARS AGO FX RIGHT ANKLE. - Past Surgical History Past Surgical History: Yes Neuro Surgical History: No Pertinent History Cardiac History: No Pertinent History Respiratory Surgery: Chest Surgery GI Surgical History: No Pertinent History, Cholecystectomy Genitourinary Surgical Hx: No Pertinent History Musculskeletal Surgical Hx: No Pertinent History Male Surgical History: No Pertinent History Other Surgical History: had non-cancerous nodule removed from left lung years ago and has pen in place from the surgery. - Social History Smoking Status: Current every day smoker How long have you smoked: 50 years Exposure to second hand smoke: Yes Alcohol: Occasionally Drug Use: none - Physical Exam Vital Signs: Vital Signs - 24 hr Temp Pulse Resp BP Pulse Ox 10/05/22 10:41 83 22 98 10/05/22 10:00 98 H 22 103/87 98 10/05/22 08:00 91 H 17 115/73 94 L 10/05/22 06:53 83 17 95 10/05/22 06:34 96 10/05/22 05:48 100 10/05/22 05:47 88 25 H 100 10/05/22 05:32 99 10/05/22 04:40 100 10/05/22 04:10 75 24 99 10/05/22 04:00 96.9 F 69 22 112/69 92 L 10/05/22 03:45 90 17 76 L 10/05/22 03:40 102 H 32 H 72 L 10/05/22 03:30 72 L 10/05/22 02:00 97 10/05/22 01:15 79 20 10/05/22 01:00 96 10/05/22 00:00 86 L 10/04/22 23:43 96.8 F 91 H 22 124/83 98 10/04/22 23:00 90 L 10/04/22 22:54 84 23 97 10/04/22 22:00 88 L 10/04/22 19:57 97.9 F 114 H 13 113/80 100 10/04/22 18:30 109 H 22 95 10/04/22 16:00 97.3 F 101 H 22 135/86 100 10/04/22 15:36 104 H 20 96 10/04/22 11:59 95 General Appearance: obese, other (sedated, on Bipap/AVAPS) Ears, Nose, Throat Exam: other (facemask in place) Neck Exam: normal inspection Respiratory Exam: diminished breath sounds (poor air exchange), No crackles/rales, No rhonchi, No wheezing Cardiovascular Exam: regular rate/rhythm, normal heart sounds, No murmur Gastrointestinal/Abdomen Exam: soft, normal bowel sounds, other (obese) Extremity Exam: swelling (1+ pretibial edema bilat LE) Skin Exam: normal color, warm, dry, No rash Results - Labs Lab/Micro Results: Lab Results-Last 24 Hours 10/04/22 10/04/22 10/04/22 Range/Units 07:30 11:55 15:12 WBC (4.0-10.5) x10^3/uL RBC (4.1-5.6) x10^6/uL Hgb (12.5-18.0) g/dL Hct (42-50) % MCV (78-100) fL MCH (26-32) pg MCHC (32-36) g/dL RDW (11.5-14.0) % Plt Count (150-450) x10^3/uL MPV (7.5-11.0) fL Gran % (36.0-66.0) % Immature Gran % (Auto) (0.00-0.4) % Nucleat RBC Rel Count (0.00-0.1) % Eos # (Auto) (0-0.5) x10^3/uL Immature Gran # (Auto) (0.00-0.03) x10^3u/L Absolute Lymphs (auto) (1.0-4.6) x10^3/uL Absolute Monos (auto) (0.0-1.3) x10^3/uL Absolute Nucleated RBC (0.00-0.01) x10^3u/L Lymphocytes % (24.0-44.0) % Monocytes % (0.0-12.0) % Eosinophils % (0.00-5.0) % Basophils % (0.0-0.4) % Absolute Granulocytes (1.4-6.9) x10^3/uL Basophils # (0-0.4) x10^3/uL Puncture Site pCO2 (35-45) mmHg pO2 (75-100) mmHg Base Excess (-2.0-2.0) O2 Saturation (94-100) g/dF ABG pH (7.35-7.45) ABG HCO3 (22-28) ABG O2 Sat (Measured) (95-100) % Danial Test A-a Gradient a/A Ratio Hemoglobin Carboxyhemoglobin (0.0-6.9) % THgb Methemoglobin (1.4-1.5) % Potassium (3.5-5.1) Temperature C POC O2 Flow Rate % Sodium (137-145) mmol/L Chloride (98-107) mmol/L Carbon Dioxide (22-30) mmol/L Anion Gap (5-15) MEQ/L BUN (9-20) mg/dL Creatinine (0.66-1.25) mg/dL Estimated GFR ML/MIN Glucose (74-106) mg/dL POC Glucometer (74 to 106) mg/dL Hemoglobin A1c 6.22 H (4.5-6.0) % Calcium (8.4-10.2) mg/dL Total Bilirubin (0.2-1.3) mg/dL AST (17-59) U/L ALT (0-50) U/L Alkaline Phosphatase (38-126) U/L Troponin I < 0.012 < 0.012 (0.000-0.034) ng/mL NT-Pro-B Natriuret Pep (0-900) pg/mL Serum Total Protein (6.3-8.2) g/dL Albumin (3.5-5.0) g/dL Procalcitonin (0.030-0.080) ng/mL Slides for Path Review 10/04/22 10/04/22 10/05/22 Range/Units 17:20 20:32 03:35 WBC (4.0-10.5) x10^3/uL RBC (4.1-5.6) x10^6/uL Hgb (12.5-18.0) g/dL Hct (42-50) % MCV (78-100) fL MCH (26-32) pg MCHC (32-36) g/dL RDW (11.5-14.0) % Plt Count (150-450) x10^3/uL MPV (7.5-11.0) fL Gran % (36.0-66.0) % Immature Gran % (Auto) (0.00-0.4) % Nucleat RBC Rel Count (0.00-0.1) % Eos # (Auto) (0-0.5) x10^3/uL Immature Gran # (Auto) (0.00-0.03) x10^3u/L Absolute Lymphs (auto) (1.0-4.6) x10^3/uL Absolute Monos (auto) (0.0-1.3) x10^3/uL Absolute Nucleated RBC (0.00-0.01) x10^3u/L Lymphocytes % (24.0-44.0) % Monocytes % (0.0-12.0) % Eosinophils % (0.00-5.0) % Basophils % (0.0-0.4) % Absolute Granulocytes (1.4-6.9) x10^3/uL Basophils # (0-0.4) x10^3/uL Puncture Site RIGHT RADIAL pCO2 93 H* (35-45) mmHg pO2 62 L (75-100) mmHg Base Excess 4.1 H (-2.0-2.0) O2 Saturation 87.4 L (94-100) g/dF ABG pH 7.20 L* (7.35-7.45) ABG HCO3 36.3 H* (22-28) ABG O2 Sat (Measured) 88.6 L (95-100) % Danial Test YES A-a Gradient 143 a/A Ratio 0.30 Hemoglobin 16.3 Carboxyhemoglobin 1.2 (0.0-6.9) % THgb Methemoglobin 0.1 L (1.4-1.5) % Potassium 4.6 (3.5-5.1) Temperature 37.0 C POC O2 Flow Rate 45 % Sodium (137-145) mmol/L Chloride (98-107) mmol/L Carbon Dioxide (22-30) mmol/L Anion Gap (5-15) MEQ/L BUN (9-20) mg/dL Creatinine (0.66-1.25) mg/dL Estimated GFR ML/MIN Glucose (74-106) mg/dL POC Glucometer 115 H 147 H (74 to 106) mg/dL Hemoglobin A1c (4.5-6.0) % Calcium (8.4-10.2) mg/dL Total Bilirubin (0.2-1.3) mg/dL AST (17-59) U/L ALT (0-50) U/L Alkaline Phosphatase (38-126) U/L Troponin I (0.000-0.034) ng/mL NT-Pro-B Natriuret Pep (0-900) pg/mL Serum Total Protein (6.3-8.2) g/dL Albumin (3.5-5.0) g/dL Procalcitonin (0.030-0.080) ng/mL Slides for Path Review 10/05/22 10/05/22 10/05/22 Range/Units 04:53 04:53 04:53 WBC 10.1 (4.0-10.5) x10^3/uL RBC 5.07 (4.1-5.6) x10^6/uL Hgb 15.5 (12.5-18.0) g/dL Hct 50.2 H (42-50) % MCV 99.0 (78-100) fL MCH 30.6 (26-32) pg MCHC 30.9 L (32-36) g/dL RDW 14.2 H (11.5-14.0) % Plt Count 283 (150-450) x10^3/uL MPV 9.8 (7.5-11.0) fL Gran % 93.6 H (36.0-66.0) % Immature Gran % (Auto) 0.7 H (0.00-0.4) % Nucleat RBC Rel Count 0.0 (0.00-0.1) % Eos # (Auto) 0 (0-0.5) x10^3/uL Immature Gran # (Auto) 0.07 H (0.00-0.03) x10^3u/L Absolute Lymphs (auto) 0.42 L (1.0-4.6) x10^3/uL Absolute Monos (auto) 0.13 (0.0-1.3) x10^3/uL Absolute Nucleated RBC 0.00 (0.00-0.01) x10^3u/L Lymphocytes % 4.2 L (24.0-44.0) % Monocytes % 1.3 (0.0-12.0) % Eosinophils % 0.0 (0.00-5.0) % Basophils % 0.2 (0.0-0.4) % Absolute Granulocytes 9.43 H (1.4-6.9) x10^3/uL Basophils # 0.02 (0-0.4) x10^3/uL Puncture Site pCO2 (35-45) mmHg pO2 (75-100) mmHg Base Excess (-2.0-2.0) O2 Saturation (94-100) g/dF ABG pH (7.35-7.45) ABG HCO3 (22-28) ABG O2 Sat (Measured) (95-100) % Danial Test A-a Gradient a/A Ratio Hemoglobin Carboxyhemoglobin (0.0-6.9) % THgb Methemoglobin (1.4-1.5) % Potassium 4.8 (3.5-5.1) Temperature C POC O2 Flow Rate % Sodium 138 (137-145) mmol/L Chloride 98 (98-107) mmol/L Carbon Dioxide 36 H (22-30) mmol/L Anion Gap 7.8 (5-15) MEQ/L BUN 41 H (9-20) mg/dL Creatinine 1.03 (0.66-1.25) mg/dL Estimated GFR > 60.0 ML/MIN Glucose 169 H (74-106) mg/dL POC Glucometer (74 to 106) mg/dL Hemoglobin A1c (4.5-6.0) % Calcium 8.9 (8.4-10.2) mg/dL Total Bilirubin 0.80 (0.2-1.3) mg/dL AST 23 (17-59) U/L ALT 27 (0-50) U/L Alkaline Phosphatase 72 (38-126) U/L Troponin I (0.000-0.034) ng/mL NT-Pro-B Natriuret Pep (0-900) pg/mL Serum Total Protein 7.1 (6.3-8.2) g/dL Albumin 3.7 (3.5-5.0) g/dL Procalcitonin 0.095 H (0.030-0.080) ng/mL Slides for Path Review YES 10/05/22 10/05/22 10/05/22 Range/Units 05:00 07:25 08:05 WBC (4.0-10.5) x10^3/uL RBC (4.1-5.6) x10^6/uL Hgb (12.5-18.0) g/dL Hct (42-50) % MCV (78-100) fL MCH (26-32) pg MCHC (32-36) g/dL RDW (11.5-14.0) % Plt Count (150-450) x10^3/uL MPV (7.5-11.0) fL Gran % (36.0-66.0) % Immature Gran % (Auto) (0.00-0.4) % Nucleat RBC Rel Count (0.00-0.1) % Eos # (Auto) (0-0.5) x10^3/uL Immature Gran # (Auto) (0.00-0.03) x10^3u/L Absolute Lymphs (auto) (1.0-4.6) x10^3/uL Absolute Monos (auto) (0.0-1.3) x10^3/uL Absolute Nucleated RBC (0.00-0.01) x10^3u/L Lymphocytes % (24.0-44.0) % Monocytes % (0.0-12.0) % Eosinophils % (0.00-5.0) % Basophils % (0.0-0.4) % Absolute Granulocytes (1.4-6.9) x10^3/uL Basophils # (0-0.4) x10^3/uL Puncture Site LEFT RADIAL pCO2 86 H* (35-45) mmHg pO2 77 (75-100) mmHg Base Excess 7.3 H (-2.0-2.0) O2 Saturation 93.8 L (94-100) g/dF ABG pH 7.26 L (7.35-7.45) ABG HCO3 38.6 H* (22-28) ABG O2 Sat (Measured) 94.7 L (95-100) % Danial Test NOT APPLICABLE A-a Gradient 172 a/A Ratio 0.31 Hemoglobin 16.3 Carboxyhemoglobin 0.9 (0.0-6.9) % THgb Methemoglobin 0.0 L (1.4-1.5) % Potassium 4.4 (3.5-5.1) Temperature 37.0 C POC O2 Flow Rate 50 % Sodium (137-145) mmol/L Chloride (98-107) mmol/L Carbon Dioxide (22-30) mmol/L Anion Gap (5-15) MEQ/L BUN (9-20) mg/dL Creatinine (0.66-1.25) mg/dL Estimated GFR ML/MIN Glucose (74-106) mg/dL POC Glucometer 148 H (74 to 106) mg/dL Hemoglobin A1c (4.5-6.0) % Calcium (8.4-10.2) mg/dL Total Bilirubin (0.2-1.3) mg/dL AST (17-59) U/L ALT (0-50) U/L Alkaline Phosphatase (38-126) U/L Troponin I (0.000-0.034) ng/mL NT-Pro-B Natriuret Pep 1440 H (0-900) pg/mL Serum Total Protein (6.3-8.2) g/dL Albumin (3.5-5.0) g/dL Procalcitonin (0.030-0.080) ng/mL Slides for Path Review Microbiology 10/04/22 07:10 Blood Culture Gram Stain - Final Blood Accuchecks Date 10/05/22 Date 10/04/22 Date 10/04/22 Time 20:50 Time 17:22 - Radiology Impressions Radiology Exams & Impressions: Radiology Procedures Category Date Time Status CHEST 1 VIEW (PORTABLE) Stat Exams 10/04/22 07:12 Completed CHEST 1 VIEW (PORTABLE) Stat Exams 10/05/22 05:05 Completed CHEST WITHOUT CONTRAST [CT] Stat Exams 10/04/22 08:24 Completed - Other Procedures and Tests Respiratory Therapy 10/04/22 12:49 BiPap/CPAP ROUTINE 10/04/22 19:00 Respiratory MDI BID Assessment/Plan (1) Respiratory distress Current Visit: Yes Status: Acute Assessment & Plan: Currently stable on Bipap/AVAPS; sedated. Appreciate pulmonary consult, thank you. I have discussed with that he was sick for a long time prior to admission and his lungs are poor at baseline - she is aware. Discussed that prognosis is poor. Discussed DNR v full-code status - she will consider. Discussed that he may be quite a bit worse after a code and that he may not be able to be extubated if he is intubated. Will see what Dr. Benson's recommendations are - if he thinks there is something to be gained by transferring the pt out, family is fine with that, but if we are able to manage here, they are happy with the care they are receiving. Code(s): R06.03 - ACUTE RESPIRATORY DISTRESS (2) RLL pneumonia Current Visit: Yes Status: Acute Qualifiers: Pneumonia type: due to unspecified organism Qualified Code(s): J18.9 - Pneumonia, unspecified organism Code(s): J18.9 - PNEUMONIA, UNSPECIFIED ORGANISM (3) COPD exacerbation Current Visit: Yes Status: Acute Assessment & Plan: On steroids IV. zosyn to cover pseudomonas. Code(s): J44.1 - CHRONIC OBSTRUCTIVE PULMONARY DISEASE W (ACUTE) EXACERBATION (4) Pulmonary edema Current Visit: Yes Status: Acute Qualifiers: Chronicity: acute Qualified Code(s): J81.0 - Acute pulmonary edema Assessment & Plan: Worsened, likely due to position change to lying down after having stood all week. Lasix 80mg IV daily. Code(s): J81.1 - CHRONIC PULMONARY EDEMA (5) Atrial fibrillation Current Visit: Yes Status: Chronic Qualifiers: Atrial fibrillation type: longstanding persistent Qualified Code(s): I48.11 - Longstanding persistent atrial fibrillation Assessment & Plan: rate controlled. Code(s): I48.91 - UNSPECIFIED ATRIAL FIBRILLATION (6) HTN (hypertension) Current Visit: Yes Status: Chronic Qualifiers: Hypertension type: primary hypertension Qualified Code(s): I10 - Essential (primary) hypertension Code(s): I10 - ESSENTIAL (PRIMARY) HYPERTENSION (7) Diabetes mellitus type II, controlled Current Visit: Yes Status: Chronic Qualifiers: Diabetes mellitus group home insulin use: without bed bug exterminator use Code(s): E11.9 - TYPE 2 DIABETES MELLITUS WITHOUT COMPLICATIONS (8) Cirrhosis Current Visit: Yes Status: Chronic Qualifiers: Hepatic cirrhosis type: alcoholic cirrhosis (9) Alcohol abuse Current Visit: Yes Status: Chronic Assessment & Plan: using ativan prn. Per pt in ER, he stopped drinking 3 weeks ago but I question the veracity (has been dishonest about his drinking behaviors for a long time). Has ativan prn, but has been quite sleepy with it. Will watch vitals to help machine tracer necessity for more BZD. Code(s): F10.10 - ALCOHOL ABUSE, UNCOMPLICATED
[2022-10-05 12:09] LABS: A-aADO2 248; ABG HEMOGLOBIN 15.6; ABG POTASSIUM 4.1 (3.5-5.1); ARTERIAL BLD GAS O2 SATURATION 96.7 % (95-100); ARTERIAL BLOOD GAS BASE EXCESS 7.4 (-2.0-2.0); ARTERIAL BLOOD GAS FIO2 60 %; ARTERIAL BLOOD GAS PO2 94 mmHg (75-100); ARTERIAL BLOOD GAS pH 7.33 (7.35-7.45); CARBOXYHEMOGLOBIN 0.5 % THgb (0.0-6.9); HCO3- 36.4 (22-28); Methhemoglobin 0.2 % (1.4-1.5)
[2022-10-05 12:10] LABS: ARTERIAL BLOOD GAS PCO2 69 mmHg (35-45)
[2022-10-05] MEDS: VANCOMYCIN 2 GRAM/400 ML BAG 2 GM/400 ML PIGGYBACK IV SCH (17:29)
[2022-10-06] MEDS: solu-MEDROL 125 MG, Sterile H2O 10 ml 2 ML IV SCH ×4 (00:18→06:42)
[2022-10-06] MEDS: Ativan 2 MG/1 ML VIAL IV PRN ×7 (00:24→22:21)
[2022-10-06] MEDS: PIPERACILLIN/TAZOBACTAM 4.5 GM in Sodium Chloride 100ML MINI-BAG PLUS 100 ML IV SCH ×5 (00:24→23:42)
[2022-10-06] MEDS: DUONEB 0.5-3 MG/3 ml Neb IH SCH ×6 (02:28→22:10)
[2022-10-06] MEDS: PATIENT OWN MEDICATION IH SCH ×4 (02:51→18:48)
[2022-10-06 05:16] LABS: Absolute Neutrophil Ct (ANC) 11.04 x10^3/uL (1.4-6.9); Basophil (Absolute #) 0.01 x10^3/uL (0-0.4); Eosinophil (Absolute #) 0 x10^3/uL (0-0.5); Hematocrit 47.5 % (42-50); Hemoglobin 15.1 g/dL (12.5-18.0); Lymphocyte (Absolute #) 0.46 x10^3/uL (1.0-4.6); Lymphocytes % 3.8 % (24.0-44.0); Mean Cell Volume 96.5 fL (78-100); Mean Corpuscular Hemoglobin 30.7 pg (26-32); Mean Corpuscular Hgb Concent. 31.8 g/dL (32-36); Mean Platelet Volume 10.3 fL (7.5-11.0); Monocyte (Absolute #) 0.53 x10^3/uL (0.0-1.3); Monocytes % 4.4 % (0.0-12.0); Neutrophil % 91.3 % (36.0-66.0); Platelet Count 271 x10^3/uL (150-450); Red Blood Count 4.92 x10^6/uL (4.1-5.6); White Blood Count 12.1 x10^3/uL (4.0-10.5)
[2022-10-06 05:43] LABS: ALBUMIN 2.9 g/dL (3.5-5.0); ALKALINE PHOSPHATASE 62 U/L (38-126); ANION GAP 8.5 MEQ/L (5-15); BLOOD UREA NITROGEN 45 mg/dL (9-20); CHLORIDE 102 mmol/L (98-107); Calcium 8.8 mg/dL (8.4-10.2); Carbon Dioxide 35 mmol/L (22-30); Creatinine 1 0.86 mg/dL (0.66-1.25); EST GLOMERULAR FILTRATION RATE > 60.0 ML/MIN; Glucose 166 mg/dL (74-106); Potassium 4.1 mmol/L (3.5-5.1); SGOT/AST 48 U/L (17-59); SGPT/ALT 29 U/L (0-50); SODIUM 142 mmol/L (137-145); Total Protein 5.6 g/dL (6.3-8.2)
[2022-10-06] MEDS: VANCOMYCIN 2 GRAM/400 ML BAG 2 GM/400 ML PIGGYBACK IV SCH ×2 (07:09→17:49)
[2022-10-06] MEDS: NORVASC 5 MG PO SCH (08:15)
[2022-10-06] MEDS: Cozaar 50 MG PO SCH (08:15)
[2022-10-06] MEDS: hydroDIURIL 25 MG PO SCH (08:15)
[2022-10-06] MEDS: Furosemide 100mg/10 ml Vial IV SCH (08:17)
[2022-10-06] MEDS: PROTONIX 40 MG IV IV SCH (08:18)
[2022-10-06] MEDS: Toprol Xl 100 MG PO SCH (08:18)
[2022-10-06] MEDS: ELIQUIS 2.5 MG TABLET PO SCH ×2 (08:19→20:55)
--- NOTE | 2022-10-06 08:44 | CONS ---
CONSULT DATE: 10/05/2022 HISTORY: Arnaud Hassan is a 67-year-old male with end-stage chronic obstructive pulmonary disease who has been admitted through the emergency room with worsening shortness of breath. The patient's reported that the patient has had progressive dyspnea with worsening symptoms for the last five years. 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 He started experiencing worsening symptoms two to three days prior which primarily led him to the emergency room visit and admission. The patient's blood gases showed acute on chronic hypercapnic and hypoxic respiratory failure. He has been placed on BiPAP. I received a call this morning requesting consultation. The patient's previous blood gases were reviewed and I recommended that his back up rate on AVAPS (average volume assured pressure support) be increased to 22 with repeat blood gas around noon. The gas obtained at noon had shown improvement in pH to baseline with compensation. The patient has been very restless and requiring Ativan every 4 hours to keep the BiPAP on. The patient has what appears to be end-stage chronic obstructive pulmonary disease. He is not on oxygen but he uses inhalers and nebulizer at home. His effort tolerance has been less than 10 steps. He unfortunately continues to smoke. CT chest obtained showed bilateral lower lobe atelectasis with small left pleural effusion. PAST MEDICAL HISTORY: Positive for history of chronic atrial fibrillation. He is on anticoagulation. He is followed by Dr. Braulio Sanderson. There is history of hypertension, diabetes mellitus, dyslipidemia, cirrhosis as well. PAST SURGICAL HISTORY: Gallbladder surgery three years ago. PERSONAL AND SOCIAL HISTORY: He is retired and lives at home cared for by family. MEDICATIONS: Home and current medications are reviewed. ALLERGIES: NKDA. PHYSICAL EXAMINATION: A middle aged male who is comfortable, sedated. Vital signs noted. HEENT: Normocephalic. Pupils are reactive. BiPAP mask in place. NECK: Shorts, supple. CVS: First and second heart sounds with irregular, tachycardia. RESPIRATORY: Shows diminished breath sounds, scattered rhonchi heard. ABDOMEN: Obese. EXTREMITIES: One plus leg edema is noted. LABORATORY DATA AND TESTS: Labs, x-rays and CT were reviewed. ASSESSMENT: This is a 67-year-old male admitted with: 1) Acute on chronic hypercapnic respiratory failure, acute component compensated with noninvasive ventilation. 2) Chronic hypoxemia. 3) End-stage chronic obstructive pulmonary disease with exacerbation. 4) Bilateral atelectasis with small left pleural effusion. 5) History of atrial fibrillation. 6) Hypertension. 7) Diabetes mellitus. 8) Nicotine addiction with alcohol abuse. RECOMMENDATIONS: I had a long discussion with the patient's . At this point he appears to have improved his blood gas with noninvasive ventilation. Unfortunately, the patient's chronic obstructive pulmonary disease appears advanced/end-stage. Based on the patient's own wishes and of , daughter opted for Do Not Resuscitate status which was instituted. At this point I recommend leaving him on BiPAP overnight. Tomorrow morning if he appears comfortable may try to wean Ativan if possible and hopefully get him off of BiPAP during meal. The patient will require home oxygen therapy upon discharge. Continue other supportive care including steroids, antibiotics, bronchodilators, etc. Overall prognosis appears poor. I will continue to follow as needed. Thank you for allowing me to participate in the care of Arnaud Hassan.
--- NOTE | 2022-10-06 08:45 | PCM.NOTE ---
Date and Time: 10/06/22838 Subjective Assessment: Pt came off bipap this morning and is currently on hi flow, 40L at 50% FiO2, with O2 sat 92-93%. He is sitting up in a chair. His HR is 120s. BP 125 systolic. Had 2,000 mL out yesterday (day shift) and 1150 out last night. Reponds to some questions. Says he feels "alright." - Review of Systems Constitutional: No Fever Respiratory: Cough, Short Of Breath Objective Exam General Appearance: no apparent distress, other (responds to some questions. Tries to stand up out of bed. Moves to chair with assistance. Coughs with some difficulty.) Neurologic Exam: alert, disoriented Skin Exam: warm, dry, No rash Eye Exam: eyes nml inspection Ears, Nose, Throat Exam: moist mucous membranes Neck Exam: normal inspection Respiratory Exam: diminished breath sounds (poor air exchange), other (increased WOB), No crackles/rales, No rhonchi, No wheezing Cardiovascular Exam: normal heart sounds, tachycardia, No murmur Gastrointestinal/Abdomen Exam: soft, normal bowel sounds, No tenderness Extremity Exam: normal inspection Back Exam: normal inspection, No rash OBJECTIVE DATA Vital Signs: Vital Signs - 24 hr Temp Pulse Resp BP BP Pulse Ox 10/06/22 07:46 110 H 116/77 93 L 10/06/22 07:40 93 L 10/06/22 07:16 92 H 10/06/22 06:39 76 22 96 10/06/22 06:00 84 23 107/72 90 L 10/06/22 05:00 83 22 114/80 96 10/06/22 04:25 82 22 124/89 10/06/22 04:00 98.5 F 82 22 124/89 96 10/06/22 03:00 83 22 84/58 96 10/06/22 02:25 82 18 97 10/06/22 02:00 77 22 99/67 97 10/06/22 01:00 88 22 99/67 95 10/06/22 00:00 98.7 F 85 22 104/71 95 10/05/22 23:00 90 22 101/62 93 L 10/05/22 22:30 93 H 22 109/70 96 10/05/22 22:05 85 22 97 10/05/22 21:00 82 22 102/73 95 10/05/22 20:00 98.6 F 89 23 96/68 97 10/05/22 18:34 82 23 97 10/05/22 18:00 74 22 97/59 98 10/05/22 15:47 97.9 F 93 H 22 93/65 97 10/05/22 15:02 110 H 22 97 10/05/22 13:50 91 H 22 95/78 96 10/05/22 11:57 97 H 22 100/74 96 10/05/22 10:41 83 22 98 10/05/22 10:00 98 H 22 103/87 98 Pain Assessment - Last Documented Pain Intensity 0 Pain Scale Used FLACC Intake and Output: Intake & Output 10/03/22 10/04/22 10/05/22 10/06/22 11:59 11:59 11:59 11:59 Intake Total 1174 1139 Output Total 550 3150 Balance 62 Weight 122.4 kg Lab Results: Lab Results-Last 24 Hours 10/05/22 10/05/22 10/05/22 Range/Units 04:53 05:00 08:05 WBC (4.0-10.5) x10^3/uL RBC (4.1-5.6) x10^6/uL Hgb (12.5-18.0) g/dL Hct (42-50) % MCV (78-100) fL MCH (26-32) pg MCHC (32-36) g/dL RDW (11.5-14.0) % Plt Count (150-450) x10^3/uL MPV (7.5-11.0) fL Gran % (36.0-66.0) % Immature Gran % (Auto) (0.00-0.4) % Nucleat RBC Rel Count (0.00-0.1) % Eos # (Auto) (0-0.5) x10^3/uL Immature Gran # (Auto) (0.00-0.03) x10^3u/L Absolute Lymphs (auto) (1.0-4.6) x10^3/uL Absolute Monos (auto) (0.0-1.3) x10^3/uL Absolute Nucleated RBC (0.00-0.01) x10^3u/L Lymphocytes % (24.0-44.0) % Monocytes % (0.0-12.0) % Eosinophils % (0.00-5.0) % Basophils % (0.0-0.4) % Absolute Granulocytes (1.4-6.9) x10^3/uL Basophils # (0-0.4) x10^3/uL Puncture Site LEFT RADIAL pCO2 (35-45) mmHg pO2 (75-100) mmHg Base Excess (-2.0-2.0) O2 Saturation (94-100) g/dF ABG pH (7.35-7.45) ABG HCO3 (22-28) ABG O2 Sat (Measured) (95-100) % Danial Test NOT APPLICABLE A-a Gradient a/A Ratio Hemoglobin Carboxyhemoglobin (0.0-6.9) % THgb Methemoglobin (1.4-1.5) % Potassium (3.5-5.1) Temperature C POC O2 Flow Rate % Sodium (137-145) mmol/L Chloride (98-107) mmol/L Carbon Dioxide (22-30) mmol/L Anion Gap (5-15) MEQ/L BUN (9-20) mg/dL Creatinine (0.66-1.25) mg/dL Estimated GFR ML/MIN Glucose (74-106) mg/dL POC Glucometer (74 to 106) mg/dL Calcium (8.4-10.2) mg/dL Total Bilirubin (0.2-1.3) mg/dL AST (17-59) U/L ALT (0-50) U/L Alkaline Phosphatase (38-126) U/L NT-Pro-B Natriuret Pep 1440 H (0-900) pg/mL Serum Total Protein (6.3-8.2) g/dL Albumin (3.5-5.0) g/dL Procalcitonin 0.095 H (0.030-0.080) ng/mL 10/05/22 10/05/22 10/05/22 Range/Units 12:00 15:58 21:00 WBC (4.0-10.5) x10^3/uL RBC (4.1-5.6) x10^6/uL Hgb (12.5-18.0) g/dL Hct (42-50) % MCV (78-100) fL MCH (26-32) pg MCHC (32-36) g/dL RDW (11.5-14.0) % Plt Count (150-450) x10^3/uL MPV (7.5-11.0) fL Gran % (36.0-66.0) % Immature Gran % (Auto) (0.00-0.4) % Nucleat RBC Rel Count (0.00-0.1) % Eos # (Auto) (0-0.5) x10^3/uL Immature Gran # (Auto) (0.00-0.03) x10^3u/L Absolute Lymphs (auto) (1.0-4.6) x10^3/uL Absolute Monos (auto) (0.0-1.3) x10^3/uL Absolute Nucleated RBC (0.00-0.01) x10^3u/L Lymphocytes % (24.0-44.0) % Monocytes % (0.0-12.0) % Eosinophils % (0.00-5.0) % Basophils % (0.0-0.4) % Absolute Granulocytes (1.4-6.9) x10^3/uL Basophils # (0-0.4) x10^3/uL Puncture Site left rad pCO2 69 H* (35-45) mmHg pO2 94 (75-100) mmHg Base Excess 7.4 H (-2.0-2.0) O2 Saturation 96.0 (94-100) g/dF ABG pH 7.33 L (7.35-7.45) ABG HCO3 36.4 H* (22-28) ABG O2 Sat (Measured) 96.7 (95-100) % Danial Test na A-a Gradient 248 a/A Ratio 0.27 Hemoglobin 15.6 Carboxyhemoglobin 0.5 (0.0-6.9) % THgb Methemoglobin 0.2 L (1.4-1.5) % Potassium 4.1 (3.5-5.1) Temperature 37.0 C POC O2 Flow Rate 60 % Sodium (137-145) mmol/L Chloride (98-107) mmol/L Carbon Dioxide (22-30) mmol/L Anion Gap (5-15) MEQ/L BUN (9-20) mg/dL Creatinine (0.66-1.25) mg/dL Estimated GFR ML/MIN Glucose (74-106) mg/dL POC Glucometer 150 H 153 H (74 to 106) mg/dL Calcium (8.4-10.2) mg/dL Total Bilirubin (0.2-1.3) mg/dL AST (17-59) U/L ALT (0-50) U/L Alkaline Phosphatase (38-126) U/L NT-Pro-B Natriuret Pep (0-900) pg/mL Serum Total Protein (6.3-8.2) g/dL Albumin (3.5-5.0) g/dL Procalcitonin (0.030-0.080) ng/mL 10/06/22 10/06/22 10/06/22 Range/Units 04:15 04:15 07:09 WBC 12.1 H (4.0-10.5) x10^3/uL RBC 4.92 (4.1-5.6) x10^6/uL Hgb 15.1 (12.5-18.0) g/dL Hct 47.5 (42-50) % MCV 96.5 (78-100) fL MCH 30.7 (26-32) pg MCHC 31.8 L (32-36) g/dL RDW 14.0 (11.5-14.0) % Plt Count 271 (150-450) x10^3/uL MPV 10.3 (7.5-11.0) fL Gran % 91.3 H (36.0-66.0) % Immature Gran % (Auto) 0.4 (0.00-0.4) % Nucleat RBC Rel Count 0.0 (0.00-0.1) % Eos # (Auto) 0 (0-0.5) x10^3/uL Immature Gran # (Auto) 0.05 H (0.00-0.03) x10^3u/L Absolute Lymphs (auto) 0.46 L (1.0-4.6) x10^3/uL Absolute Monos (auto) 0.53 (0.0-1.3) x10^3/uL Absolute Nucleated RBC 0.00 (0.00-0.01) x10^3u/L Lymphocytes % 3.8 L (24.0-44.0) % Monocytes % 4.4 (0.0-12.0) % Eosinophils % 0.0 (0.00-5.0) % Basophils % 0.1 (0.0-0.4) % Absolute Granulocytes 11.04 H (1.4-6.9) x10^3/uL Basophils # 0.01 (0-0.4) x10^3/uL Puncture Site pCO2 (35-45) mmHg pO2 (75-100) mmHg Base Excess (-2.0-2.0) O2 Saturation (94-100) g/dF ABG pH (7.35-7.45) ABG HCO3 (22-28) ABG O2 Sat (Measured) (95-100) % Danial Test A-a Gradient a/A Ratio Hemoglobin Carboxyhemoglobin (0.0-6.9) % THgb Methemoglobin (1.4-1.5) % Potassium 4.1 (3.5-5.1) Temperature C POC O2 Flow Rate % Sodium 142 (137-145) mmol/L Chloride 102 (98-107) mmol/L Carbon Dioxide 35 H (22-30) mmol/L Anion Gap 8.5 (5-15) MEQ/L BUN 45 H (9-20) mg/dL Creatinine 0.86 (0.66-1.25) mg/dL Estimated GFR > 60.0 ML/MIN Glucose 166 H (74-106) mg/dL POC Glucometer 193 H (74 to 106) mg/dL Calcium 8.8 (8.4-10.2) mg/dL Total Bilirubin 0.70 (0.2-1.3) mg/dL AST 48 (17-59) U/L ALT 29 (0-50) U/L Alkaline Phosphatase 62 (38-126) U/L NT-Pro-B Natriuret Pep (0-900) pg/mL Serum Total Protein 5.6 L (6.3-8.2) g/dL Albumin 2.9 L (3.5-5.0) g/dL Procalcitonin (0.030-0.080) ng/mL Radiology Exams: Radiology Procedures Category Date Time Status CHEST 1 VIEW (PORTABLE) Stat Exams 10/05/22 05:05 Completed CHEST WITHOUT CONTRAST [CT] Stat Exams 10/04/22 08:24 Completed Multi-Disciplinary Progress Notes: Multi-Disciplinary Progress Notes 10/06/22 07:38 Respiratory Note by Yakelin Beckford PT WAS TAKEN OFF BIPAP AND PLACED ON 10LPM VIA OXYMIZER. O2 SAT 95%. PT DIDN'T FEEL LIKE HE WAS GETTING ENOUGH AIR SO PT WAS CHANGED OVER TO HIGH FLOW (40L, 50%). O2 SAT 93%. DR. GHOTRA GOOD W/ O2 SATS 88%-93%. Initialized on 10/06/22 07:38 - END OF NOTE 10/05/22 11:31 Case Management Note by Karyn Mccoy PATIENT CRITICALLY ILL- WILL DEFER CASE MANAGEMENT ASSESS AT THIS TIME. PER ADMISSION PATIENT NORMALLY INDEPENDENT AND LIVES WITH SPOUSE. Initialized on 10/05/22 11:31 - END OF NOTE Assessment/Plan (1) Respiratory distress Current Visit: Yes Status: Acute Assessment & Plan: improved currently. Prognosis is still guarded. Appreciate Dr. Benson consult, thank you. Code(s): R06.03 - ACUTE RESPIRATORY DISTRESS (2) RLL pneumonia Current Visit: Yes Status: Acute Qualifiers: Pneumonia type: due to unspecified organism Qualified Code(s): J18.9 - Pneumonia, unspecified organism Assessment & Plan: on vancomycin and zosyn day #2. Code(s): J18.9 - PNEUMONIA, UNSPECIFIED ORGANISM (3) COPD exacerbation Current Visit: Yes Status: Acute Code(s): J44.1 - CHRONIC OBSTRUCTIVE PULMONARY DISEASE W (ACUTE) EXACERBATION (4) Pulmonary edema Current Visit: Yes Status: Acute Qualifiers: Chronicity: acute Qualified Code(s): J81.0 - Acute pulmonary edema Assessment & Plan: Will stay on 80mg lasix IV daily. Had quite a fluid overload initially. May need to start some light IV fluids. Renal function is still wnl. Code(s): J81.1 - CHRONIC PULMONARY EDEMA (5) Atrial fibrillation Current Visit: Yes Status: Chronic Qualifiers: Atrial fibrillation type: longstanding persistent Qualified Code(s): I48.11 - Longstanding persistent atrial fibrillation Assessment & Plan: Will restart beta alcon at 100mg po BID instead of 200mg po BID due to fear of hypotension. currently on lovenox since he was unable to take po since admission. If he does well on po will resume his DOAC. Code(s): I48.91 - UNSPECIFIED ATRIAL FIBRILLATION (6) HTN (hypertension) Current Visit: Yes Status: Chronic Qualifiers: Hypertension type: primary hypertension Qualified Code(s): I10 - Essential (primary) hypertension Code(s): I10 - ESSENTIAL (PRIMARY) HYPERTENSION (7) Diabetes mellitus type II, controlled Current Visit: Yes Status: Chronic Qualifiers: Diabetes mellitus terminal operator insulin use: without custodial use Code(s): E11.9 - TYPE 2 DIABETES MELLITUS WITHOUT COMPLICATIONS (8) Cirrhosis Current Visit: Yes Status: Chronic Qualifiers: Hepatic cirrhosis type: alcoholic cirrhosis (9) Alcohol abuse Current Visit: Yes Status: Chronic Assessment & Plan: Has ativan prn - but will change to 0.5mg because the 1mg made him too sleepy over the past 2 days. Code(s): F10.10 - ALCOHOL ABUSE, UNCOMPLICATED
--- NOTE | 2022-10-06 09:31 | PROG NOTE ---
Events noted. HISTORY: The patient is awake, sitting in a chair, was taken off of BiPAP. He is on high flow saturating 92%. Heart rate 110, irregular, blood pressure 134/75. He does report feeling better. PHYSICAL EXAMINATION: HEENT: Normocephalic. Oral exam shows small oropharynx. NECK: Supple. CVS: First and second heart sounds with irregularity. RESPIRATORY: Shows diminished breath sounds, rhonchi has improved. ABDOMEN: Obese. EXTREMITIES: Trace edema is noted. LABORATORY DATA AND TESTS: White count 12.1, hemoglobin 15.1, hematocrit 47.5, PLT count 271,000. Sodium 142, potassium 4.1, chloride 102, bicarb 35, glucose 166, BUN 45 and creatinine 0.86. Cultures are negative. ASSESSMENT: This is a 67-year-old male admitted with: 1) Acute on chronic hypercapnic respiratory failure, acute component resolved. 2) Chronic hypoxemia. 3) End-stage chronic obstructive pulmonary disease with exacerbation. 4) Chronic atrial fibrillation with accelerated rate. 5) Anxiety. 6) Nicotine addiction. 7) Obstructive sleep apnea on CPAP therapy at home. RECOMMENDATIONS: 1) The patient is doing well clinically. 2) Reduce steroids. 3) Increase ambulation. 4) Attempt to keep him off of BiPAP during the day if possible. The patient currently has a CPAP however would benefit from trial on invasive ventilation as well as home oxygen therapy upon discharge. Continue other supportive care. Discussed with family at bedside. I will be able to follow in outpatient setting.
[2022-10-06 09:35] LABS: Slide Review 1 YES
[2022-10-06] MEDS: MORPHINE SULFATE 2 MG INJ IV PRN ×4 (09:39→20:55)
[2022-10-06] MEDS ORDERED: solu-MEDROL ONE ×2 (10:55→16:48)
[2022-10-06] MEDS: solu-MEDROL 60 MG, Sterile H2O 10 ml 2 ML IV SCH ×6 (11:00→23:42)
[2022-10-06] MEDS: Sodium Chloride 0.9% 1000 ML 1,000 ML IV SCH ×2 (11:17→15:41)
[2022-10-06] MEDS ORDERED: Ativan 2 MG/1 ML VIAL ONE (22:16)
[2022-10-07] MEDS: MORPHINE SULFATE 2 MG INJ IV PRN (01:00)
[2022-10-07] MEDS: DUONEB 0.5-3 MG/3 ml Neb IH SCH ×6 (03:00→23:21)
[2022-10-07] MEDS ORDERED: TROUGH DRUG LEVELS IJ ONE (05:30)
[2022-10-07 05:50] LABS: Absolute Neutrophil Ct (ANC) 11.97 x10^3/uL (1.4-6.9); Basophil (Absolute #) 0.01 x10^3/uL (0-0.4); Eosinophil (Absolute #) 0 x10^3/uL (0-0.5); Hematocrit 51.9 % (42-50); Hemoglobin 15.9 g/dL (12.5-18.0); Lymphocyte (Absolute #) 0.49 x10^3/uL (1.0-4.6); Lymphocytes % 3.8 % (24.0-44.0); Mean Cell Volume 99.6 fL (78-100); Mean Corpuscular Hemoglobin 30.5 pg (26-32); Mean Corpuscular Hgb Concent. 30.6 g/dL (32-36); Mean Platelet Volume 9.6 fL (7.5-11.0); Monocyte (Absolute #) 0.51 x10^3/uL (0.0-1.3); Monocytes % 3.9 % (0.0-12.0); Neutrophil % 91.9 % (36.0-66.0); Platelet Count 295 x10^3/uL (150-450); Red Blood Count 5.21 x10^6/uL (4.1-5.6); Red Cell Distribution Width 13.7 % (11.5-14.0)
[2022-10-07 06:02] LABS: ALBUMIN 3.4 g/dL (3.5-5.0); ALKALINE PHOSPHATASE 61 U/L (38-126); BLOOD UREA NITROGEN 43 mg/dL (9-20); CHLORIDE 100 mmol/L (98-107); Calcium 8.7 mg/dL (8.4-10.2); Creatinine 1 0.88 mg/dL (0.66-1.25); EST GLOMERULAR FILTRATION RATE > 60.0 ML/MIN; Glucose 158 mg/dL (74-106); Potassium 3.8 mmol/L (3.5-5.1); SGOT/AST 44 U/L (17-59); SGPT/ALT 37 U/L (0-50); SODIUM 142 mmol/L (137-145); Total Protein 6.5 g/dL (6.3-8.2)
[2022-10-07 06:09] LABS: Carbon Dioxide 40 mmol/L (22-30)
[2022-10-07] MEDS: solu-MEDROL 40 MG, Sterile H2O 10 ml 1 ML IV SCH ×6 (06:14→20:42)
[2022-10-07] MEDS: PIPERACILLIN/TAZOBACTAM 4.5 GM in Sodium Chloride 100ML MINI-BAG PLUS 100 ML IV SCH ×4 (06:14→23:21)
[2022-10-07 06:24] LABS: ANION GAP 5.8 MEQ/L (5-15)
[2022-10-07] MEDS: VANCOMYCIN 2 GRAM/400 ML BAG 2 GM/400 ML PIGGYBACK IV SCH ×2 (06:50→18:15)
[2022-10-07] MEDS: PATIENT OWN MEDICATION IH SCH ×2 (07:10→18:50)
[2022-10-07] MEDS: Ativan 2 MG/1 ML VIAL IV PRN ×2 (07:22→20:42)
--- NOTE | 2022-10-07 08:10 | PCM.NOTE ---
Date and Time: 10/07/22 0804 Subjective Assessment: Pt has been hallucinating, was trying to climb out of bed yesterday evening so his ativan was increased back to 1mg. Did stay on high flow yesterday, and was changed to bipap last night just because he was sleeping. The plan per RT is to change him back to high flow today. He ate 50% of breakfast and lunch yesterday, but no dinner. Per RN his urine has darkened last night to a "tea" color. - Review of Systems Constitutional: No Fever Respiratory: Cough, Short Of Breath Objective Exam General Appearance: no apparent distress, other (on bipap; he wakes briefly to touch. I told him "I'm here to take care of you," and he says, "I'll let you.") Neurologic Exam: other (mildly sedated, on bipap) Skin Exam: normal color, warm, dry, No rash Eye Exam: eyes nml inspection Neck Exam: normal inspection Respiratory Exam: diminished breath sounds (fair air exchange), No crac kles/rales, No rhonchi, No wheezing Cardiovascular Exam: regular rate/rhythm, normal heart sounds, No murmur Gastrointestinal/Abdomen Exam: soft, No normal bowel sounds (bowel sounds are diminished and somewhat high pitched), No tenderness, No distention (obese, as usual), No mass, No guarding, No rebound Extremity Exam: No swelling OBJECTIVE DATA Vital Signs: Vital Signs - 24 hr Temp Pulse Resp BP Pulse Ox 10/07/22 06:00 88 22 131/84 94 L 10/07/22 04:00 97 F 83 22 123/68 95 10/07/22 03:00 66 22 93 L 10/07/22 02:00 97 F 83 22 123/68 95 10/07/22 00:00 97.2 F 95 H 24 131/95 96 10/06/22 22:10 88 20 96 10/06/22 22:00 96 H 24 94 L 10/06/22 20:00 97.1 F 90 26 H 155/115 93 L 10/06/22 18:41 75 25 H 96 10/06/22 17:51 84 26 H 118/72 97 10/06/22 15:48 76 21 115/85 97 10/06/22 14:56 86 22 92 L 10/06/22 13:52 92 H 20 134/84 97 10/06/22 12:52 93 L 10/06/22 11:50 93 H 26 H 123/72 93 L 10/06/22 10:40 118 H 26 H 94 L 10/06/22 10:00 110 H 24 132/89 94 L 10/06/22 09:01 92 L Pain Assessment - Last Documented Pain Intensity 0 Pain Scale Used [facility] Intake and Output: Intake & Output 10/04/22 10/05/22 10/06/22 10/07/22 11:59 11:59 11:59 11:59 Intake Total 1174 1379 1841 Output Total 680 0117 0601 Balance 942 -5894 -3291 Weight 122.4 kg Lab Results: Lab Results-Last 24 Hours 10/06/22 10/06/22 10/06/22 Range/Units 04:15 12:10 16:17 WBC (4.0-10.5) x10^3/uL RBC (4.1-5.6) x10^6/uL Hgb (12.5-18.0) g/dL Hct (42-50) % MCV (78-100) fL MCH (26-32) pg MCHC (32-36) g/dL RDW (11.5-14.0) % Plt Count (150-450) x10^3/uL MPV (7.5-11.0) fL Gran % (36.0-66.0) % Immature Gran % (Auto) (0.00-0.4) % Nucleat RBC Rel Count (0.00-0.1) % Eos # (Auto) (0-0.5) x10^3/uL Immature Gran # (Auto) (0.00-0.03) x10^3u/L Absolute Lymphs (auto) (1.0-4.6) x10^3/uL Absolute Monos (auto) (0.0-1.3) x10^3/uL Absolute Nucleated RBC (0.00-0.01) x10^3u/L Lymphocytes % (24.0-44.0) % Monocytes % (0.0-12.0) % Eosinophils % (0.00-5.0) % Basophils % (0.0-0.4) % Absolute Granulocytes (1.4-6.9) x10^3/uL Basophils # (0-0.4) x10^3/uL Sodium (137-145) mmol/L Potassium (3.5-5.1) mmol/L Chloride (98-107) mmol/L Carbon Dioxide (22-30) mmol/L Anion Gap (5-15) MEQ/L BUN (9-20) mg/dL Creatinine (0.66-1.25) mg/dL Estimated GFR ML/MIN Glucose (74-106) mg/dL POC Glucometer 158 H 170 H (74 to 106) mg/dL Calcium (8.4-10.2) mg/dL Total Bilirubin (0.2-1.3) mg/dL AST (17-59) U/L ALT (0-50) U/L Alkaline Phosphatase (38-126) U/L NT-Pro-B Natriuret Pep (0-900) pg/mL Serum Total Protein (6.3-8.2) g/dL Albumin (3.5-5.0) g/dL Vancomycin Trough (10-20) ug/mL Slides for Path Review YES 10/06/22 10/06/22 10/07/22 Range/Units 20:32 Unknown 05:35 WBC (4.0-10.5) x10^3/uL RBC (4.1-5.6) x10^6/uL Hgb (12.5-18.0) g/dL Hct (42-50) % MCV (78-100) fL MCH (26-32) pg MCHC (32-36) g/dL RDW (11.5-14.0) % Plt Count (150-450) x10^3/uL MPV (7.5-11.0) fL Gran % (36.0-66.0) % Immature Gran % (Auto) (0.00-0.4) % Nucleat RBC Rel Count (0.00-0.1) % Eos # (Auto) (0-0.5) x10^3/uL Immature Gran # (Auto) (0.00-0.03) x10^3u/L Absolute Lymphs (auto) (1.0-4.6) x10^3/uL Absolute Monos (auto) (0.0-1.3) x10^3/uL Absolute Nucleated RBC (0.00-0.01) x10^3u/L Lymphocytes % (24.0-44.0) % Monocytes % (0.0-12.0) % Eosinophils % (0.00-5.0) % Basophils % (0.0-0.4) % Absolute Granulocytes (1.4-6.9) x10^3/uL Basophils # (0-0.4) x10^3/uL Sodium (137-145) mmol/L Potassium (3.5-5.1) mmol/L Chloride (98-107) mmol/L Carbon Dioxide (22-30) mmol/L Anion Gap (5-15) MEQ/L BUN (9-20) mg/dL Creatinine (0.66-1.25) mg/dL Estimated GFR ML/MIN Glucose (74-106) mg/dL POC Glucometer 156 H (74 to 106) mg/dL Calcium (8.4-10.2) mg/dL Total Bilirubin (0.2-1.3) mg/dL AST (17-59) U/L ALT (0-50) U/L Alkaline Phosphatase (38-126) U/L NT-Pro-B Natriuret Pep 669 (0-900) pg/mL Serum Total Protein (6.3-8.2) g/dL Albumin (3.5-5.0) g/dL Vancomycin Trough 15.05 (10-20) ug/mL Slides for Path Review 10/07/22 10/07/22 10/07/22 Range/Units 05:35 05:35 07:43 WBC 13.0 H (4.0-10.5) x10^3/uL RBC 5.21 (4.1-5.6) x10^6/uL Hgb 15.9 (12.5-18.0) g/dL Hct 51.9 H (42-50) % MCV 99.6 (78-100) fL MCH 30.5 (26-32) pg MCHC 30.6 L (32-36) g/dL RDW 13.7 (11.5-14.0) % Plt Count 295 (150-450) x10^3/uL MPV 9.6 (7.5-11.0) fL Gran % 91.9 H (36.0-66.0) % Immature Gran % (Auto) 0.3 (0.00-0.4) % Nucleat RBC Rel Count 0.0 (0.00-0.1) % Eos # (Auto) 0 (0-0.5) x10^3/uL Immature Gran # (Auto) 0.04 H (0.00-0.03) x10^3u/L Absolute Lymphs (auto) 0.49 L (1.0-4.6) x10^3/uL Absolute Monos (auto) 0.51 (0.0-1.3) x10^3/uL Absolute Nucleated RBC 0.00 (0.00-0.01) x10^3u/L Lymphocytes % 3.8 L (24.0-44.0) % Monocytes % 3.9 (0.0-12.0) % Eosinophils % 0.0 (0.00-5.0) % Basophils % 0.1 (0.0-0.4) % Absolute Granulocytes 11.97 H (1.4-6.9) x10^3/uL Basophils # 0.01 (0-0.4) x10^3/uL Sodium 142 (137-145) mmol/L Potassium 3.8 (3.5-5.1) mmol/L Chloride 100 (98-107) mmol/L Carbon Dioxide 40 H (22-30) mmol/L Anion Gap 5.8 (5-15) MEQ/L BUN 43 H (9-20) mg/dL Creatinine 0.88 (0.66-1.25) mg/dL Estimated GFR > 60.0 ML/MIN Glucose 158 H (74-106) mg/dL POC Glucometer 141 H (74 to 106) mg/dL Calcium 8.7 (8.4-10.2) mg/dL Total Bilirubin 0.80 (0.2-1.3) mg/dL AST 44 (17-59) U/L ALT 37 (0-50) U/L Alkaline Phosphatase 61 (38-126) U/L NT-Pro-B Natriuret Pep (0-900) pg/mL Serum Total Protein 6.5 (6.3-8.2) g/dL Albumin 3.4 L (3.5-5.0) g/dL Vancomycin Trough (10-20) ug/mL Slides for Path Review Multi-Disciplinary Progress Notes: Multi-Disciplinary Progress Notes 10/06/22 17:09 Case Management Note by Karyn Mccoy/W SEB FROM [facility]- HE WILL COME BY THE AM TO HELP ORDER TRELEGY. HE ALSO REPORTS THEY ARE IN STOCK AND PATIENT SHOULD BE ABLE TO HAVE ONE BY END OF DAY 10/07 Initialized on 10/06/22 17:09 - END OF NOTE Assessment/Plan (1) Respiratory distress Current Visit: Yes Status: Acute Assessment & Plan: Has improved greatly from admission (moving more air today than yesterday), but still has distinct episodes of air hunger that are being treated with O2, m orphine, and ativan. He was on Bipap AVAPS after admission, but yesterday was able to be on high flow NC. Dr. Benson has consulted, thank you. On IV zosyn to cover pseudomonas, and IV vancomycin. On IV steroids. Code(s): R06.03 - ACUTE RESPIRATORY DISTRESS (2) MRSA bacteremia Current Visit: Yes Status: Acute Assessment & Plan: On IV vancomycin day #3. Code(s): R78.81 - BACTEREMIA; B95.62 - METHICILLIN RESIS STAPH INFCT CAUSING DISEASES CLASSD [id number] (3) RLL pneumonia Current Visit: Yes Status: Acute Qualifiers: Pneumonia type: due to unspecified organism Qualified Code(s): J18.9 - Pneumonia, unspecified organism Code(s): J18.9 - PNEUMONIA, UNSPECIFIED ORGANISM (4) Ileus Current Visit: Yes Status: Suspected Assessment & Plan: based on his bowel sounds today, I suspect he may develop some ileus. Code(s): K56.7 - ILEUS, UNSPECIFIED (5) COPD exacerbation Current Visit: Yes Status: Acute Code(s): J44.1 - CHRONIC OBSTRUCTIVE PULMONARY DISEASE W (ACUTE) EXACERBATION (6) Pulmonary edema Current Visit: Yes Status: Acute Qualifiers: Chronicity: acute Qualified Code(s): J81.0 - Acute pulmonary edema Assessment & Plan: Has been on 80mg lasix IV; renal function is still good, but urine is starting to look dehydrated. He did eat and drink some yesterday, but I'm increasing IV fluids today to 75 mL/hr (NS with 20mEq K). Check daily labs. Will continue the 80mg IV lasix daily for now as I believe the pulmonary edema initially was a large factor in the worsening respiratory distress. Code(s): J81.1 - CHRONIC PULMONARY EDEMA (7) Atrial fibrillation Current Visit: Yes Status: Chronic Qualifiers: Atrial fibrillation type: longstanding persistent Qualified Code(s): I48.11 - Longstanding persistent atrial fibrillation Code(s): I48.91 - UNSPECIFIED ATRIAL FIBRILLATION (8) HTN (hypertension) Current Visit: Yes Status: Chronic Qualifiers: Hypertension type: primary hypertension Qualified Code(s): I10 - Essential (primary) hypertension Assessment & Plan: may be able to restart some home meds today if BP continues to hold steady/increase. Code(s): I10 - ESSENTIAL (PRIMARY) HYPERTENSION (9) Diabetes mellitus type II, controlled Current Visit: Yes Status: Chronic Qualifiers: Diabetes mellitus terminal manager insulin use: without skilled nursing use Diabetes mellitus complication status: without complication Qualified Code(s): E11.9 - Type 2 diabetes mellitus without complications Code(s): E11.9 - TYPE 2 DIABETES MELLITUS WITHOUT COMPLICATIONS (10) Cirrhosis Current Visit: Yes Status: Chronic Qualifiers: Hepatic cirrhosis type: alcoholic cirrhosis (11) Alcohol abuse Current Visit: Yes Status: Chronic Code(s): F10.10 - ALCOHOL ABUSE, UNCOMPLICATED
[2022-10-07] MEDS ORDERED: Sodium Chloride 0.9% W/ 20 mEq KCl/LITER 1,000 ML IV SCH (08:15)
[2022-10-07] MEDS: PROTONIX 40 MG IV IV SCH (08:27)
[2022-10-07] MEDS: Furosemide 100mg/10 ml Vial IV SCH (08:27)
[2022-10-07] MEDS: Cozaar 50 MG PO SCH (10:05)
[2022-10-07] MEDS: NORVASC 5 MG PO SCH (10:05)
[2022-10-07] MEDS: Toprol Xl 100 MG PO SCH (10:05)
[2022-10-07] MEDS: ELIQUIS 2.5 MG TABLET PO SCH ×2 (10:06→20:42)
[2022-10-07] MEDS: hydroDIURIL 25 MG PO SCH (10:06)
[2022-10-07 11:28] LABS: Slide Review 1 YES
[2022-10-07] MEDS ORDERED: solu-MEDROL ONE (13:51)
[2022-10-07] MEDS ORDERED: Sodium Chloride 0.9% 10 ML FLUSH Syringe IV PRN (14:18)
[2022-10-07] MEDS ORDERED: CLONIDINE 0.1 MG TABLET PO ONE (14:20)
--- NOTE | 2022-10-07 14:45 | XRAY ---
Indication: Follow-up pneumonia. Comparison: October 05, 2022 Portable chest demonstrates slight worsening left base infiltrate/atelectasis/effusion and also worsening mild right base infiltrate/atelectasis with new small right effusion. Remaining heart and upper lungs unremarkable.
[2022-10-07] MEDS: Sodium Chloride 0.9% 10 ML FLUSH Syringe IV SCH (20:43)
[2022-10-08] MEDS: Ativan 2 MG/1 ML VIAL IV PRN (00:26)
[2022-10-08] MEDS ORDERED: Ativan 2 MG/1 ML VIAL IV ONE (01:19)
[2022-10-08] MEDS: DUONEB 0.5-3 MG/3 ml Neb IH SCH ×5 (02:53→19:40)
[2022-10-08] MEDS: PIPERACILLIN/TAZOBACTAM 4.5 GM in Sodium Chloride 100ML MINI-BAG PLUS 100 ML IV SCH ×4 (05:28→23:58)
[2022-10-08] MEDS: solu-MEDROL 40 MG, Sterile H2O 10 ml 1 ML IV SCH ×6 (05:29→20:46)
[2022-10-08 05:57] LABS: Hemoglobin 16.4 g/dL (12.5-18.0); Mean Cell Volume 96.8 fL (78-100); Mean Corpuscular Hemoglobin 30.5 pg (26-32); Mean Corpuscular Hgb Concent. 31.5 g/dL (32-36); Mean Platelet Volume 9.8 fL (7.5-11.0); Platelet Count 266 x10^3/uL (150-450); Red Blood Count 5.37 x10^6/uL (4.1-5.6); Red Cell Distribution Width 13.4 % (11.5-14.0); White Blood Count 10.4 x10^3/uL (4.0-10.5)
[2022-10-08] MEDS: VANCOMYCIN 2 GRAM/400 ML BAG 2 GM/400 ML PIGGYBACK IV SCH ×2 (06:09→19:31)
[2022-10-08] MEDS: Sodium Chloride 0.9% 10 ML FLUSH Syringe IV SCH ×3 (06:09→20:47)
[2022-10-08 06:28] LABS: ALBUMIN 3.2 g/dL (3.5-5.0); ALKALINE PHOSPHATASE 51 U/L (38-126); BLOOD UREA NITROGEN 40 mg/dL (9-20); CHLORIDE 96 mmol/L (98-107); Calcium 8.6 mg/dL (8.4-10.2); Creatinine 1 0.74 mg/dL (0.66-1.25); EST GLOMERULAR FILTRATION RATE > 60.0 ML/MIN; Glucose 150 mg/dL (74-106); NT PRO BNP 1580 pg/mL (0-900); Potassium 3.7 mmol/L (3.5-5.1); SGOT/AST 31 U/L (17-59); SGPT/ALT 35 U/L (0-50); SODIUM 138 mmol/L (137-145); Total Protein 6.2 g/dL (6.3-8.2)
[2022-10-08 06:52] LABS: Carbon Dioxide 40 mmol/L (22-30)
[2022-10-08 06:53] LABS: ANION GAP 5.7 MEQ/L (5-15)
[2022-10-08] MEDS: ELIQUIS 2.5 MG TABLET PO SCH ×2 (09:20→20:46)
[2022-10-08] MEDS: NORVASC 5 MG PO SCH (09:21)
[2022-10-08] MEDS: hydroDIURIL 25 MG PO SCH (09:21)
[2022-10-08] MEDS: Toprol Xl 100 MG PO SCH (09:21)
[2022-10-08] MEDS: Cozaar 50 MG PO SCH (09:21)
[2022-10-08] MEDS: PROTONIX 40 MG IV IV SCH (09:22)
[2022-10-08] MEDS: Furosemide 100mg/10 ml Vial IV SCH (09:22)
[2022-10-08] MEDS: PATIENT OWN MEDICATION IH SCH ×2 (11:02→19:41)
[2022-10-08] MEDS: Klor Con PO SCH (12:15)
--- NOTE | 2022-10-08 15:22 | PCM.NOTE ---
Date and Time: 10/08/22 1511 Subjective Assessment: Patient had some difficulty/anxiety combative on Bipap last night relieved after 2 doses of Ativan. Is propped upright in bed with 10L oximizer, family at bedside (son and ). Dr Benson Stra[employer] consult reviewed. Patient and family understand the end stage status COPD and agreed to DNR. BNP elevated and Lasix IV this am with good diuresis,IV fluids have been discontinued.Patient is jonnie po. Objective Exam General Appearance: no apparent distress Neurologic Exam: alert, oriented x 3, normal mood/affect Skin Exam: normal color, warm, dry Neck Exam: normal inspection Respiratory Exam: diminished breath sounds, wheezing (mid bilateral,no rales) Cardiovascular Exam: tachycardia, irregular Gastrointestinal/Abdomen Exam: soft, normal bowel sounds, No tenderness OBJECTIVE DATA Vital Signs: Vital Signs - 24 hr Temp Pulse Resp BP Pulse Ox 10/08/22 14:35 93 H 34 H 96 10/08/22 13:00 96.8 F 96 H 26 H 139/87 95 10/08/22 12:00 102 H 10/08/22 11:03 73 40 H 94 L 10/08/22 11:00 99 H 28 H 132/84 94 L 10/08/22 09:00 70 24 153/98 97 10/08/22 08:00 41 L 10/08/22 07:42 47 L 20 93 L 10/08/22 07:00 96.4 F 54 L 19 135/97 96 10/08/22 05:00 56 L 24 148/82 96 10/08/22 04:00 57 L 10/08/22 03:00 62 20 122/82 97 10/08/22 02:53 55 L 20 96 10/08/22 01:25 74 24 10/08/22 01:00 80 34 H 88 L 10/08/22 00:00 65 10/07/22 23:21 57 L 18 97 10/07/22 23:00 72 19 119/80 95 10/07/22 21:00 64 23 137/90 96 10/07/22 19:53 73 10/07/22 19:00 97.3 F 72 24 139/87 10/07/22 18:40 75 20 96 10/07/22 17:50 98.7 F 73 20 127/104 97 10/07/22 16:00 85 Pain Assessment - Last Documented Pain Intensity 0 Pain Scale Used [facility] Intake and Output: Intake & Output 10/06/22 10/07/22 10/08/22 10/09/22 11:59 11:59 11:59 11:59 Intake Total 1375 7611 2045 Output Total 4371 2133 2622 [id number] [facility], [place] -[phone] Lab Results: Lab Results-Last 24 Hours 10/07/22 10/07/22 10/08/22 Range/Units 16:49 21:31 05:54 WBC 10.4 (4.0-10.5) x10^3/uL RBC 5.37 (4.1-5.6) x10^6/uL Hgb 16.4 (12.5-18.0) g/dL Hct 52.0 H (42-50) % MCV 96.8 (78-100) fL MCH 30.5 (26-32) pg MCHC 31.5 L (32-36) g/dL RDW 13.4 (11.5-14.0) % Plt Count 266 (150-450) x10^3/uL MPV 9.8 (7.5-11.0) fL Sodium (137-145) mmol/L Potassium (3.5-5.1) mmol/L Chloride (98-107) mmol/L Carbon Dioxide (22-30) mmol/L Anion Gap (5-15) MEQ/L BUN (9-20) mg/dL Creatinine (0.66-1.25) mg/dL Estimated GFR ML/MIN Glucose (74-106) mg/dL POC Glucometer 135 H 146 H (74 to 106) mg/dL Calcium (8.4-10.2) mg/dL Total Bilirubin (0.2-1.3) mg/dL AST (17-59) U/L ALT (0-50) U/L Alkaline Phosphatase (38-126) U/L NT-Pro-B Natriuret Pep (0-900) pg/mL Serum Total Protein (6.3-8.2) g/dL Albumin (3.5-5.0) g/dL 10/08/22 10/08/22 10/08/22 Range/Units 05:54 07:01 11:43 WBC (4.0-10.5) x10^3/uL RBC (4.1-5.6) x10^6/uL Hgb (12.5-18.0) g/dL Hct (42-50) % MCV (78-100) fL MCH (26-32) pg MCHC (32-36) g/dL RDW (11.5-14.0) % Plt Count (150-450) x10^3/uL MPV (7.5-11.0) fL Sodium 138 (137-145) mmol/L Potassium 3.7 (3.5-5.1) mmol/L Chloride 96 L (98-107) mmol/L Carbon Dioxide 40 H (22-30) mmol/L Anion Gap 5.7 (5-15) MEQ/L BUN 40 H (9-20) mg/dL Creatinine 0.74 (0.66-1.25) mg/dL Estimated GFR > 60.0 ML/MIN Glucose 150 H (74-106) mg/dL POC Glucometer 136 H 157 H (74 to 106) mg/dL Calcium 8.6 (8.4-10.2) mg/dL Total Bilirubin 1.10 (0.2-1.3) mg/dL AST 31 (17-59) U/L ALT 35 (0-50) U/L Alkaline Phosphatase 51 (38-126) U/L NT-Pro-B Natriuret Pep 1580 H (0-900) pg/mL Serum Total Protein 6.2 L (6.3-8.2) g/dL Albumin 3.2 L (3.5-5.0) g/dL Radiology Exams: Radiology Procedures Category Date Time Status CHEST 1 VIEW (PORTABLE) Stat Exams 10/07/22 14:35 Completed Multi-Disciplinary Progress Notes: Multi-Disciplinary Progress Notes 10/08/22 01:56 Respiratory Note by Jenifer Minor RT spoke to patient about wearing bipap. Patient continues to refuse bipap at this time. PT is currently on 10L oxymizer. Pt was informed of risks of not wearing bipap. Initialized on 10/08/22 01:56 - END OF NOTE 10/08/22 00:55 Respiratory Note by Jenifer Minor RN called to inform RT that patient is refusing bipap at this time. RN took patient off bipap at 0015 at patient request. Pt refuses to go back on bipap at this time. Initialized on 10/08/22 00:55 - END OF NOTE Assessment/Plan (1) COPD exacerbation Current Visit: Yes Status: Acute Assessment & Plan: end stage COPD Code(s): J44.1 - CHRONIC OBSTRUCTIVE PULMONARY DISEASE W (ACUTE) EXACERBATION (2) MRSA bacteremia Current Visit: Yes Status: Acute Assessment & Plan: is on Vanc and Zosyn Code(s): R78.81 - BACTEREMIA; B95.62 - METHICILLIN RESIS STAPH INFCT CAUSING DISEASES CLASSD ELSWHR (3) Atrial fibrillation Current Visit: Yes Status: Chronic Qualifiers: Atrial fibrillation type: longstanding persistent Qualified Code(s): I48.11 - Longstanding persistent atrial fibrillation Assessment & Plan: heart rate 70- 100 Code(s): I48.91 - UNSPECIFIED ATRIAL FIBRILLATION (4) Elevated brain natriuretic peptide (BNP) level Current Visit: Yes Status: Acute Assessment & Plan: IV fluids were dc'd,diuresed with IV lasix Code(s): R79.89 - OTHER SPECIFIED ABNORMAL FINDINGS OF BLOOD CHEMISTRY
[2022-10-09] MEDS: DUONEB 0.5-3 MG/3 ml Neb IH SCH ×4 (01:45→19:32)
[2022-10-09] MEDS ORDERED: TROUGH DRUG LEVELS IJ ONE (05:30)
[2022-10-09] MEDS: solu-MEDROL 40 MG, Sterile H2O 10 ml 1 ML IV SCH ×6 (05:51→21:09)
[2022-10-09] MEDS: PIPERACILLIN/TAZOBACTAM 4.5 GM in Sodium Chloride 100ML MINI-BAG PLUS 100 ML IV SCH ×2 (05:51→11:59)
[2022-10-09 05:53] LABS: Hemoglobin 16.5 g/dL (12.5-18.0); Mean Cell Volume 94.6 fL (78-100); Mean Corpuscular Hemoglobin 30.6 pg (26-32); Mean Corpuscular Hgb Concent. 32.4 g/dL (32-36); Mean Platelet Volume 9.3 fL (7.5-11.0); Platelet Count 277 x10^3/uL (150-450); Red Blood Count 5.39 x10^6/uL (4.1-5.6); Red Cell Distribution Width 12.8 % (11.5-14.0); White Blood Count 10.1 x10^3/uL (4.0-10.5)
[2022-10-09 06:25] LABS: ALBUMIN 3.2 g/dL (3.5-5.0); ALKALINE PHOSPHATASE 53 U/L (38-126); BLOOD UREA NITROGEN 37 mg/dL (9-20); CHLORIDE 91 mmol/L (98-107); Calcium 8.6 mg/dL (8.4-10.2); Creatinine 1 0.92 mg/dL (0.66-1.25); EST GLOMERULAR FILTRATION RATE > 60.0 ML/MIN; Glucose 157 mg/dL (74-106); NT PRO BNP 913 pg/mL (0-900); Potassium 3.8 mmol/L (3.5-5.1); SGOT/AST 28 U/L (17-59); SGPT/ALT 41 U/L (0-50); SODIUM 136 mmol/L (137-145); Total Protein 6.1 g/dL (6.3-8.2)
[2022-10-09] MEDS: VANCOMYCIN 2 GRAM/400 ML BAG 2 GM/400 ML PIGGYBACK IV SCH ×2 (06:33→18:38)
[2022-10-09] MEDS: Sodium Chloride 0.9% 10 ML FLUSH Syringe IV SCH ×3 (06:33→21:10)
[2022-10-09 06:37] LABS: Carbon Dioxide 44 mmol/L (22-30)
[2022-10-09 06:38] LABS: ANION GAP 4.8 MEQ/L (5-15)
[2022-10-09] MEDS: PATIENT OWN MEDICATION IH SCH ×2 (06:55→19:32)
[2022-10-09] MEDS: Furosemide 100mg/10 ml Vial IV SCH (10:04)
[2022-10-09] MEDS: PROTONIX 40 MG IV IV SCH (10:04)
[2022-10-09] MEDS: Toprol Xl 100 MG PO SCH (10:08)
[2022-10-09] MEDS: Cozaar 50 MG PO SCH (10:08)
[2022-10-09] MEDS: ELIQUIS 2.5 MG TABLET PO SCH ×2 (10:08→21:09)
[2022-10-09] MEDS: NORVASC 5 MG PO SCH (10:08)
[2022-10-09] MEDS: hydroDIURIL 25 MG PO SCH (10:08)
[2022-10-09] MEDS: Klor Con PO SCH (10:08)
[2022-10-09] MEDS: HUMALOG SQ PRN (12:13)
--- NOTE | 2022-10-09 14:10 | PCM.NOTE ---
Date and Time: 10/09/22 1403 Subjective Assessment: Patietn states feeling much better breathing easier. Is up in chair visiting. Appetite is good and had BM x2 today. BNP down to 900 from 1500 yesterday. Objective Exam General Appearance: no apparent distress, other (O2 5L oximizer) Neurologic Exam: alert, oriented x 3, cooperative, normal mood/affect Neck Exam: normal inspection Respiratory Exam: wheezing (mid bilaterally no rales or ronchi,better aeration today) Cardiovascular Exam: irregular (rate 65-90) Gastrointestinal/Abdomen Exam: soft, No tenderness Extremity Exam: other (trace ankle edema) OBJECTIVE DATA Vital Signs: Vital Signs - 24 hr Temp Pulse Resp BP Pulse Ox 10/09/22 12:58 102 H 28 H 93 L 10/09/22 12:00 85 27 H 111/78 95 10/09/22 10:00 92 H 24 94 L 10/09/22 08:00 96.2 F 58 L 26 H 148/96 94 L 10/09/22 07:43 96 10/09/22 06:55 68 19 96 10/09/22 05:41 62 21 144/87 97 10/09/22 04:00 97.0 F 62 16 148/98 95 10/09/22 02:00 62 17 133/87 97 10/09/22 01:45 56 L 20 98 10/09/22 00:00 96.7 F 64 17 132/88 97 10/08/22 22:47 62 20 134/91 98 10/08/22 21:00 84 25 H 118/71 96 10/08/22 20:00 80 10/08/22 19:41 97 H 22 96 10/08/22 19:00 79 28 H 127/96 96 10/08/22 15:42 94 H 10/08/22 15:00 94 H 27 H 130/87 97 10/08/22 14:35 93 H 34 H 96 Pain Assessment - Last Documented Pain Intensity 0 Pain Scale Used [facility] Intake and Output: Intake & Output 10/07/22 10/08/22 10/09/22 10/10/22 11:59 11:59 11:59 11:59 Intake Total 1841 2045 1049 Output Total 5873 7220 9233 1999 [facility] -4009 [phone] -1999 Lab Results: Lab Results-Last 24 Hours 10/08/22 10/08/22 10/09/22 Range/Units 16:50 21:36 05:49 WBC 10.1 (4.0-10.5) x10^3/uL RBC 5.39 (4.1-5.6) x10^6/uL Hgb 16.5 (12.5-18.0) g/dL Hct 51.0 H (42-50) % MCV 94.6 (78-100) fL MCH 30.6 (26-32) pg MCHC 32.4 (32-36) g/dL RDW 12.8 (11.5-14.0) % Plt Count 277 (150-450) x10^3/uL MPV 9.3 (7.5-11.0) fL Sodium (137-145) mmol/L Potassium (3.5-5.1) mmol/L Chloride (98-107) mmol/L Carbon Dioxide (22-30) mmol/L Anion Gap (5-15) MEQ/L BUN (9-20) mg/dL Creatinine (0.66-1.25) mg/dL Estimated GFR ML/MIN Glucose (74-106) mg/dL POC Glucometer 183 H 157 H (74 to 106) mg/dL Calcium (8.4-10.2) mg/dL Total Bilirubin (0.2-1.3) mg/dL AST (17-59) U/L ALT (0-50) U/L Alkaline Phosphatase (38-126) U/L NT-Pro-B Natriuret Pep (0-900) pg/mL Serum Total Protein (6.3-8.2) g/dL Albumin (3.5-5.0) g/dL Vancomycin Trough (10-20) ug/mL 10/09/22 10/09/22 10/09/22 Range/Units 05:49 05:49 07:24 WBC (4.0-10.5) x10^3/uL RBC (4.1-5.6) x10^6/uL Hgb (12.5-18.0) g/dL Hct (42-50) % MCV (78-100) fL MCH (26-32) pg MCHC (32-36) g/dL RDW (11.5-14.0) % Plt Count (150-450) x10^3/uL MPV (7.5-11.0) fL Sodium 136 L (137-145) mmol/L Potassium 3.8 (3.5-5.1) mmol/L Chloride 91 L (98-107) mmol/L Carbon Dioxide 44 H (22-30) mmol/L Anion Gap 4.8 L (5-15) MEQ/L BUN 37 H (9-20) mg/dL Creatinine 0.92 (0.66-1.25) mg/dL Estimated GFR > 60.0 ML/MIN Glucose 157 H (74-106) mg/dL POC Glucometer 139 H (74 to 106) mg/dL Calcium 8.6 (8.4-10.2) mg/dL Total Bilirubin 1.40 H (0.2-1.3) mg/dL AST 28 (17-59) U/L ALT 41 (0-50) U/L Alkaline Phosphatase 53 (38-126) U/L NT-Pro-B Natriuret Pep 913 H (0-900) pg/mL Serum Total Protein 6.1 L (6.3-8.2) g/dL Albumin 3.2 L (3.5-5.0) g/dL Vancomycin Trough 17.16 (10-20) ug/mL 10/09/22 Range/Units 11:07 WBC (4.0-10.5) x10^3/uL RBC (4.1-5.6) x10^6/uL Hgb (12.5-18.0) g/dL Hct (42-50) % MCV (78-100) fL MCH (26-32) pg MCHC (32-36) g/dL RDW (11.5-14.0) % Plt Count (150-450) x10^3/uL MPV (7.5-11.0) fL Sodium (137-145) mmol/L Potassium (3.5-5.1) mmol/L Chloride (98-107) mmol/L Carbon Dioxide (22-30) mmol/L Anion Gap (5-15) MEQ/L BUN (9-20) mg/dL Creatinine (0.66-1.25) mg/dL Estimated GFR ML/MIN Glucose (74-106) mg/dL POC Glucometer 233 H (74 to 106) mg/dL Calcium (8.4-10.2) mg/dL Total Bilirubin (0.2-1.3) mg/dL AST (17-59) U/L ALT (0-50) U/L Alkaline Phosphatase (38-126) U/L NT-Pro-B Natriuret Pep (0-900) pg/mL Serum Total Protein (6.3-8.2) g/dL Albumin (3.5-5.0) g/dL Vancomycin Trough (10-20) ug/mL Radiology Exams: Radiology Procedures Category Date Time Status CHEST 1 VIEW (PORTABLE) Stat Exams 10/07/22 14:35 Completed Assessment/Plan (1) COPD exacerbation Current Visit: Yes Status: Acute Assessment & Plan: improved Code(s): J44.1 - CHRONIC OBSTRUCTIVE PULMONARY DISEASE W (ACUTE) EXACERBATION (2) MRSA bacteremia Current Visit: Yes Status: Acute Assessment & Plan: Pharmacy is reviewing cult ID report re current IVs Code(s): R78.81 - BACTEREMIA; B95.62 - METHICILLIN RESIS STAPH INFCT CAUSING DISEASES CLASSD ELSWHR (3) Atrial fibrillation Current Visit: Yes Status: Chronic Qualifiers: Atrial fibrillation type: longstanding persistent Qualified Code(s): I48.11 - Longstanding persistent atrial fibrillation Code(s): I48.91 - UNSPECIFIED ATRIAL FIBRILLATION (4) Elevated brain natriuretic peptide (BNP) level Current Visit: Yes Status: Resolved Code(s): R79.89 - OTHER SPECIFIED ABNORMAL FINDINGS OF BLOOD CHEMISTRY
[2022-10-10] MEDS: DUONEB 0.5-3 MG/3 ml Neb IH SCH ×4 (02:02→19:23)
[2022-10-10 05:14] LABS: Hematocrit 52.6 % (42-50); Hemoglobin 17.3 g/dL (12.5-18.0); Mean Cell Volume 92.9 fL (78-100); Mean Corpuscular Hemoglobin 30.6 pg (26-32); Mean Corpuscular Hgb Concent. 32.9 g/dL (32-36); Mean Platelet Volume 9.6 fL (7.5-11.0); Platelet Count 301 x10^3/uL (150-450); Red Blood Count 5.66 x10^6/uL (4.1-5.6); Red Cell Distribution Width 13.1 % (11.5-14.0); White Blood Count 11.3 x10^3/uL (4.0-10.5)
[2022-10-10 05:43] LABS: ALBUMIN 3.3 g/dL (3.5-5.0); ALKALINE PHOSPHATASE 56 U/L (38-126); BLOOD UREA NITROGEN 37 mg/dL (9-20); CHLORIDE 91 mmol/L (98-107); Calcium 8.6 mg/dL (8.4-10.2); Creatinine 1 0.88 mg/dL (0.66-1.25); EST GLOMERULAR FILTRATION RATE > 60.0 ML/MIN; Glucose 158 mg/dL (74-106); NT PRO BNP 630 pg/mL (0-900); Potassium 3.4 mmol/L (3.5-5.1); SGOT/AST 28 U/L (17-59); SGPT/ALT 47 U/L (0-50); SODIUM 134 mmol/L (137-145); Total Protein 6.3 g/dL (6.3-8.2)
[2022-10-10 05:44] LABS: ANION GAP 6.4 MEQ/L (5-15); Carbon Dioxide 40 mmol/L (22-30)
[2022-10-10] MEDS: solu-MEDROL 40 MG, Sterile H2O 10 ml 1 ML IV SCH ×6 (05:59→21:02)
[2022-10-10] MEDS: VANCOMYCIN 2 GRAM/400 ML BAG 2 GM/400 ML PIGGYBACK IV SCH ×2 (05:59→17:46)
[2022-10-10] MEDS: Sodium Chloride 0.9% 10 ML FLUSH Syringe IV SCH ×3 (05:59→21:03)
[2022-10-10] MEDS: PATIENT OWN MEDICATION IH SCH ×2 (07:00→23:10)
[2022-10-10] MEDS: MOTRIN 600 MG PO PRN (08:26)
[2022-10-10] MEDS: Cozaar 50 MG PO SCH (09:33)
[2022-10-10] MEDS: Toprol Xl 100 MG PO SCH (09:33)
[2022-10-10] MEDS: NORVASC 5 MG PO SCH (09:33)
[2022-10-10] MEDS: hydroDIURIL 25 MG PO SCH (09:33)
[2022-10-10] MEDS: Klor Con PO SCH (09:33)
[2022-10-10] MEDS: ELIQUIS 2.5 MG TABLET PO SCH ×2 (09:34→21:02)
[2022-10-10] MEDS: Protonix 40MG Tablet PO SCH (09:34)
[2022-10-10] MEDS: Lasix 40 MG/4 ML IV SCH (09:37)
--- NOTE | 2022-10-10 10:04 | PCM.NOTE ---
Date and Time: 10/10/22958 Subjective Assessment: He is on bipap at night and oximizer in the day. Sitting up, joking today. Caitlin po very well. Objective Exam General Appearance: no apparent distress, alert, obese Neurologic Exam: oriented x 3, cooperative Skin Exam: normal color, warm, dry, No rash Eye Exam: eyes nml inspection Ears, Nose, Throat Exam: moist mucous membranes Neck Exam: normal inspection Respiratory Exam: diminished breath sounds (good air exchange), No crackles/rales, No rhonchi, No wheezing Cardiovascular Exam: regular rate/rhythm, normal heart sounds, No murmur Gastrointestinal/Abdomen Exam: soft, normal bowel sounds, No tenderness, No mass, No guarding, No rebound Extremity Exam: normal inspection, No pedal edema, No swelling Male Genitalia Exam: other (urine in catheter is grossly bloody) OBJECTIVE DATA Vital Signs: Vital Signs - 24 hr Temp Pulse Resp BP BP Pulse Ox 10/10/22 08:00 97.1 F 84 126/77 95 10/10/22 07:05 84 18 95 10/10/22 06:00 64 28 H 133/102 99 10/10/22 04:00 66 24 141/93 99 10/10/22 02:08 65 23 98 10/10/22 02:00 60 20 137/91 98 10/10/22 00:00 66 10/09/22 23:27 97.0 F 77 22 137/85 97 10/09/22 21:48 85 26 H 156/80 97 10/09/22 20:00 96.9 F 80 25 H 123/81 96 10/09/22 19:43 82 10/09/22 19:32 75 26 H 95 10/09/22 17:47 75 22 133/89 94 L 10/09/22 16:00 81 10/09/22 15:03 97.1 F 94 H 24 121/92 95 10/09/22 14:00 97 H 19 119/74 94 L 10/09/22 12:58 102 H 28 H 93 L 10/09/22 12:00 83 27 H 111/78 95 10/09/22 10:00 92 H 24 94 L Pain Assessment - Last Documented Pain Intensity 0 Pain Scale Used 0-10 Pain Scale Intake and Output: Intake & Output 10/07/22 10/08/22 10/09/2221/22 11:59 11:59 11:59 11:59 Intake Total 2762 5557 5139 592 Output Total 5890 8772 7223 8969 Balance -3064 -6229 -0105 -5572 Weight 119.1 kg Lab Results: Lab Results-Last 24 Hours 10/09/22 10/09/22 10/09/22 Range/Units 11:07 16:15 21:39 WBC (4.0-10.5) x10^3/uL RBC (4.1-5.6) x10^6/uL Hgb (12.5-18.0) g/dL Hct (42-50) % MCV (78-100) fL MCH (26-32) pg MCHC (32-36) g/dL RDW (11.5-14.0) % Plt Count (150-450) x10^3/uL MPV (7.5-11.0) fL Sodium (137-145) mmol/L Potassium (3.5-5.1) mmol/L Chloride (98-107) mmol/L Carbon Dioxide (22-30) mmol/L Anion Gap (5-15) MEQ/L BUN (9-20) mg/dL Creatinine (0.66-1.25) mg/dL Estimated GFR ML/MIN Glucose (74-106) mg/dL POC Glucometer 233 H 146 H 139 H (74 to 106) mg/dL Calcium (8.4-10.2) mg/dL Total Bilirubin (0.2-1.3) mg/dL AST (17-59) U/L ALT (0-50) U/L Alkaline Phosphatase (38-126) U/L NT-Pro-B Natriuret Pep (0-900) pg/mL Serum Total Protein (6.3-8.2) g/dL Albumin (3.5-5.0) g/dL 10/10/22 10/10/22 10/10/22 Range/Units 04:00 04:30 07:29 WBC 11.3 H (4.0-10.5) x10^3/uL RBC 5.66 H (4.1-5.6) x10^6/uL Hgb 17.3 (12.5-18.0) g/dL Hct 52.6 H (42-50) % MCV 92.9 (78-100) fL MCH 30.6 (26-32) pg MCHC 32.9 (32-36) g/dL RDW 13.1 (11.5-14.0) % Plt Count 301 (150-450) x10^3/uL MPV 9.6 (7.5-11.0) fL Sodium 134 L (137-145) mmol/L Potassium 3.4 L (3.5-5.1) mmol/L Chloride 91 L (98-107) mmol/L Carbon Dioxide 40 H (22-30) mmol/L Anion Gap 6.4 (5-15) MEQ/L BUN 37 H (9-20) mg/dL Creatinine 0.88 (0.66-1.25) mg/dL Estimated GFR > 60.0 ML/MIN Glucose 158 H (74-106) mg/dL POC Glucometer 158 H (74 to 106) mg/dL Calcium 8.6 (8.4-10.2) mg/dL Total Bilirubin 1.50 H (0.2-1.3) mg/dL AST 28 (17-59) U/L ALT 47 (0-50) U/L Alkaline Phosphatase 56 (38-126) U/L NT-Pro-B Natriuret Pep 630 (0-900) pg/mL Serum Total Protein 6.3 (6.3-8.2) g/dL Albumin 3.3 L (3.5-5.0) g/dL Assessment/Plan (1) Respiratory distress Current Visit: Yes Status: Acute Assessment & Plan: Breathing is much better. Will need to see Dr. Benson outpatient. Move pt to Med Surg today, out of ICU. Code(s): R06.03 - ACUTE RESPIRATORY DISTRESS (2) MRSA bacteremia Current Visit: Yes Status: Acute Assessment & Plan: on vancomycin day #6 Code(s): R78.81 - BACTEREMIA; B95.62 - METHICILLIN RESIS STAPH INFCT CAUSING DISEASES CLASSD ELSWHR (3) RLL pneumonia Current Visit: Yes Status: Resolved Qualifiers: Pneumonia type: due to unspecified organism Qualified Code(s): J18.9 - Pneumonia, unspecified organism Code(s): J18.9 - PNEUMONIA, UNSPECIFIED ORGANISM (4) COPD exacerbation Current Visit: Yes Status: Acute Code(s): J44.1 - CHRONIC OBSTRUCTIVE PULMONARY DISEASE W (ACUTE) EXACERBATION (5) Pulmonary edema Current Visit: Yes Status: Resolved Qualifiers: Chronicity: acute Qualified Code(s): J81.0 - Acute pulmonary edema Code(s): J81.1 - CHRONIC PULMONARY EDEMA (6) Atrial fibrillation Current Visit: Yes Status: Chronic Qualifiers: Atrial fibrillation type: longstanding persistent Qualified Code(s): I48.11 - Longstanding persistent atrial fibrillation Code(s): I48.91 - UNSPECIFIED ATRIAL FIBRILLATION (7) HTN (hypertension) Current Visit: Yes Status: Chronic Qualifiers: Hypertension type: primary hypertension Qualified Code(s): I10 - Essential (primary) hypertension Code(s): I10 - ESSENTIAL (PRIMARY) HYPERTENSION (8) Diabetes mellitus type II, controlled Current Visit: Yes Status: Chronic Qualifiers: Diabetes mellitus custodial insulin use: without custodial use Diabetes mellitus complication status: without complication Qualified Code(s): E11.9 - Type 2 diabetes mellitus without complications Code(s): E11.9 - TYPE 2 DIABETES MELLITUS WITHOUT COMPLICATIONS (9) Cirrhosis Current Visit: Yes Status: Chronic Qualifiers: Hepatic cirrhosis type: alcoholic cirrhosis (10) Alcohol abuse Current Visit: Yes Status: Chronic Code(s): F10.10 - ALCOHOL ABUSE, UNCOMPLICATED
[2022-10-10] MEDS: HUMALOG SQ PRN (21:42)
[2022-10-11] MEDS: DUONEB 0.5-3 MG/3 ml Neb IH SCH ×4 (00:49→19:10)
[2022-10-11 06:25] LABS: Hematocrit 56.7 % (42-50); Hemoglobin 18.5 g/dL (12.5-18.0); Mean Cell Volume 93.6 fL (78-100); Mean Corpuscular Hemoglobin 30.5 pg (26-32); Mean Corpuscular Hgb Concent. 32.6 g/dL (32-36); Platelet Count 313 x10^3/uL (150-450); Red Blood Count 6.06 x10^6/uL (4.1-5.6); Red Cell Distribution Width 13.2 % (11.5-14.0); White Blood Count 16.1 x10^3/uL (4.0-10.5)
[2022-10-11] MEDS: solu-MEDROL 40 MG, Sterile H2O 10 ml 1 ML IV SCH ×6 (06:49→21:05)
[2022-10-11] MEDS: VANCOMYCIN 2 GRAM/400 ML BAG 2 GM/400 ML PIGGYBACK IV SCH (06:49)
[2022-10-11] MEDS: Sodium Chloride 0.9% 10 ML FLUSH Syringe IV SCH ×3 (06:49→21:05)
[2022-10-11 06:55] LABS: ALBUMIN 3.6 g/dL (3.5-5.0); ALKALINE PHOSPHATASE 73 U/L (38-126); BLOOD UREA NITROGEN 40 mg/dL (9-20); CHLORIDE 93 mmol/L (98-107); Creatinine 1 0.89 mg/dL (0.66-1.25); EST GLOMERULAR FILTRATION RATE > 60.0 ML/MIN; Glucose 152 mg/dL (74-106); NT PRO BNP 645 pg/mL (0-900); Potassium 3.3 mmol/L (3.5-5.1); SGOT/AST 24 U/L (17-59); SGPT/ALT 51 U/L (0-50); SODIUM 137 mmol/L (137-145); Total Protein 6.7 g/dL (6.3-8.2)
[2022-10-11] MEDS: PATIENT OWN MEDICATION IH SCH ×2 (07:46→19:10)
[2022-10-11 08:02] LABS: Carbon Dioxide 41 mmol/L (22-30)
[2022-10-11] MEDS: Lasix 40 MG/4 ML IV SCH (08:53)
[2022-10-11] MEDS: Klor Con PO SCH ×2 (08:53→21:05)
[2022-10-11] MEDS: ELIQUIS 2.5 MG TABLET PO SCH ×2 (08:54→21:05)
[2022-10-11] MEDS: Protonix 40MG Tablet PO SCH (08:54)
[2022-10-11] MEDS: Cozaar 50 MG PO SCH (08:54)
[2022-10-11] MEDS: hydroDIURIL 25 MG PO SCH (08:54)
[2022-10-11] MEDS: Toprol Xl 100 MG PO SCH (08:54)
[2022-10-11] MEDS: NORVASC 5 MG PO SCH (08:54)
--- NOTE | 2022-10-11 09:24 | PCM.DS ---
Discharge Summary Date of Admission: 10/05/22 03:30 Admitting Physician: SALAS GHOTRA Consults: Consults on Case 10/05/22 09:09 Consult Pulmonology ROUTINE Primary Care Provider: SALAS GHOTRA Allergies Allergies No Known Drug Allergies Allergy (Verified 08/07/19 06:13) Hospital Summary - Hospital Course Hospital Course: is a 67 year old male pt of mine who came in through ER with PNA and respiratory distress. He has a PMHx COPD, afib (on Eliquis), COPD, HTN, DMII, cirrhosis of the liver, and EtOH abuse. He had been sick for over a week but his couldn't convince him to come to the hospital. He had increased cough and had to stand up in order to breathe. The history was per the medical record and the pt's , who is at bedside. Apparently he was also having MALDONADO and pro ductive cough. Was started on rocephin and zithromax. Pt apparently drinks 2 fifths of alcohol a week, a fact that he was able to hide from his until he started feeling so ill and not leaving the house. He was on Bipap/AVAPs for a day or so, was made SCO by his . Dr. Troy consulted, thank you. His antibiotics were changed to vancomycin and zosyn. He was then found to have MRSA bacteremia. He has remained on bipap at night, but down to 5L O2 oximizer in the day. Is tolerating po well and PT has been consulted. He understandably has muscular deconditioning and will benefit from a swing bed stay while he continues on IV antibiotics. - Vitals & Intake/Output Vital Signs: Vital Signs Temperature 98.1 F 10/11/22 07:22 Pulse Rate 78 10/11/22 08:23 Respiratory Rate 26 H 10/11/22 08:23 Blood Pressure 131/85 10/11/22 07:22 O2 Sat by Pulse Oximetry 96 10/11/22 08:23 Intake & Output: Intake & Output 10/08/22 10/09/22 10/10/22 10/11/22 11:59 11:59 11:59 11:59 Intake Total 2045 1049 592 Output Total 4700 2600 4500 2100 Balance -2655 -1551 -3908 -2100 Weight 119.1 kg - Lab Result Diagrams: 10/11/22 05:35 10/11/22 05:35 Lab Results-Last 24 Hrs: Lab Results-Last 24 Hours 10/10/22 10/10/22 10/10/22 Range/Units 11: 16:32 21:39 WBC (4.0-10.5) x10^3/uL RBC (4.1-5.6) x10^6/uL Hgb (12.5-18.0) g/dL Hct (42-50) % MCV (78-100) fL MCH (26-32) pg MCHC (32-36) g/dL RDW (11.5-14.0) % Plt Count (150-450) x10^3/uL MPV (7.5-11.0) fL Sodium (137-145) mmol/L Potassium (3.5-5.1) mmol/L Chloride (98-107) mmol/L Carbon Dioxide (22-30) mmol/L Anion Gap BUN (9-20) mg/dL Creatinine (0.66-1.25) mg/dL Estimated GFR ML/MIN Glucose (74-106) mg/dL POC Glucometer 318 H 152 H 229 H (74 to 106) mg/dL Calcium (8.4-10.2) mg/dL Total Bilirubin (0.2-1.3) mg/dL AST (17-59) U/L ALT (0-50) U/L Alkaline Phosphatase (38-126) U/L NT-Pro-B Natriuret Pep (0-900) pg/mL Serum Total Protein (6.3-8.2) g/dL Albumin (3.5-5.0) g/dL Vancomycin Trough (10-20) ug/mL 10/11/22 10/11/22 10/11/22 Range/Units 05:35 05:35 05:35 WBC 16.1 H (4.0-10.5) x10^3/uL RBC 6.06 H (4.1-5.6) x10^6/uL Hgb 18.5 H (12.5-18.0) g/dL Hct 56.7 H (42-50) % MCV 93.6 (78-100) fL MCH 30.5 (26-32) pg MCHC 32.6 (32-36) g/dL RDW 13.2 (11.5-14.0) % Plt Count 313 (150-450) x10^3/uL MPV 10.0 (7.5-11.0) fL Sodium 137 (137-145) mmol/L Potassium 3.3 L (3.5-5.1) mmol/L Chloride 93 L (98-107) mmol/L Carbon Dioxide 41 H (22-30) mmol/L Anion Gap Pending BUN 40 H (9-20) mg/dL Creatinine 0.89 (0.66-1.25) mg/dL Estimated GFR > 60.0 ML/MIN Glucose 152 H (74-106) mg/dL POC Glucometer (74 to 106) mg/dL Calcium 9.0 (8.4-10.2) mg/dL Total Bilirubin 1.40 H (0.2-1.3) mg/dL AST 24 (17-59) U/L ALT 51 H (0-50) U/L Alkaline Phosphatase 73 (38-126) U/L NT-Pro-B Natriuret Pep 645 (0-900) pg/mL Serum Total Protein 6.7 (6.3-8.2) g/dL Albumin 3.6 (3.5-5.0) g/dL Vancomycin Trough 18.30 (10-20) ug/mL 10/11/22 Range/Units 07:28 WBC (4.0-10.5) x10^3/uL RBC (4.1-5.6) x10^6/uL Hgb (12.5-18.0) g/dL Hct (42-50) % MCV (78-100) fL MCH (26-32) pg MCHC (32-36) g/dL RDW (11.5-14.0) % Plt Count (150-450) x10^3/uL MPV (7.5-11.0) fL Sodium (137-145) mmol/L Potassium (3.5-5.1) mmol/L Chloride (98-107) mmol/L Carbon Dioxide (22-30) mmol/L Anion Gap BUN (9-20) mg/dL Creatinine (0.66-1.25) mg/dL Estimated GFR ML/MIN Glucose (74-106) mg/dL POC Glucometer 148 H (74 to 106) mg/dL Calcium (8.4-10.2) mg/dL Total Bilirubin (0.2-1.3) mg/dL AST (17-59) U/L ALT (0-50) U/L Alkaline Phosphatase (38-126) U/L NT-Pro-B Natriuret Pep (0-900) pg/mL Serum Total Protein (6.3-8.2) g/dL Albumin (3.5-5.0) g/dL Vancomycin Trough (10-20) ug/mL Micro Results-Entire Visit: Microbiology 10/04/22 07:30 Blood Culture Gram Stain - Final Blood Not Reportable Blood Culture - Final NO GROWTH 10/05/22 04:05 Urine Culture - Final Catherized NO GROWTH 10/04/22 07:10 Blood Culture Gram Stain - Final Blood Blood Culture - Final Methicillin Resist Staph Aur Accuchecks Date 10/11/22 Date 10/10/22 Date 10/10/22 Date 10/10/22 Time 07:59 Time 21:44 Time 16:55 Time 11:45 - Procedures and Test Procedures and Tests throughout Hospitalization: Therapy Orders & Screens 10/04/22 09:33 Oxygen Oxymask LPM 4 lpm Comment: 10/04/22 11:27 RT Screen per Nursing Assess ONCE Comment: Protocol Order Physician Instructions: Greater than 3 points order RT Admission Screen Reason For Exam: Triggered on Admission Diagnosis: COPD Diagnosis: COPD Pneumonia: Yes Home O2: No Asthma: No CHF: No Home CPAP/BIPAP: Yes Home Nebs/MDI: No Total Points: 8 10/04/22 12:43 Smoking Cessation Education ONCE Comment: Diagnosis: COPD Smoking Status: Current every day smoker How long have you smoked: 50 years Have you smoked in the past 12 months: Yes Approximately how many cigarettes per day: 20 Do you dip or chew tobacco: No 10/04/22 12:49 BiPap/CPAP ROUTINE Comment: Pt's own unit per home use Diagnosis: COPD 10/04/22 19:00 Respiratory MDI BID Comment: Diagnosis: COPD 10/10/22 09:15 PT Eval & Treat (MD Order) ONCE Reason for Eval:: weakness Diagnosis: COPD, RESP FAILURE 10/10/22 12:47 OT Eval and Treat (MD Order) ROUTINE Comment: Consulting Provider: Physician Instructions: Reason For Exam: Diagnosis: COPD, RESP FAILURE Discharge Exam General Appearance: no apparent distress, obese Neurologic Exam: alert, oriented x 3, cooperative Eye Exam: eyes nml inspection Ears, Nose, Throat Exam: moist mucous membranes Neck Exam: normal inspection Respiratory Exam: diminished breath sounds (more so in GLADYS; otherwise fair air exchange), prolonged expirations, No crackles/rales, No rhonchi, No wheezing Cardiovascular Exam: regular rate/rhythm, normal heart sounds, No murmur Gastrointestinal/Abdomen Exam: soft, normal bowel sounds, No tenderness, No mass, No guarding, No rebound Extremity Exam: normal inspection, No pedal edema, No swelling Skin Exam: normal color, warm, dry, No rash Final Diagnosis/Problem List - Final Discharge Diagnosis/Problem (1) Respiratory distress Current Visit: Yes Status: Resolved Code(s): R06.03 - ACUTE RESPIRATORY DISTRESS (2) MRSA bacteremia Current Visit: Yes Status: Acute Code(s): R78.81 - BACTEREMIA; B95.62 - METHICILLIN RESIS STAPH INFCT CAUSING DISEASES CLASSD ELSWHR (3) RLL pneumonia Current Visit: Yes Status: Resolved Code(s): J18.9 - PNEUMONIA, UNSPECIFIED ORGANISM (4) COPD exacerbation Current Visit: Yes Status: Acute Code(s): J44.1 - CHRONIC OBSTRUCTIVE PULMONARY DISEASE W (ACUTE) EXACERBATION (5) Pulmonary edema Current Visit: Yes Status: Resolved Assessment & Plan: will change to po lasix. Code(s): J81.1 - CHRONIC PULMONARY EDEMA (6) Atrial fibrillation Current Visit: Yes Status: Chronic Code(s): I48.91 - UNSPECIFIED ATRIAL FIBRILLATION (7) HTN (hypertension) Current Visit: Yes Status: Chronic Code(s): I10 - ESSENTIAL (PRIMARY) HYPERTENSION (8) Diabetes mellitus type II, controlled Current Visit: Yes Status: Chronic Code(s): E11.9 - TYPE 2 DIABETES MELLITUS WITHOUT COMPLICATIONS (9) Cirrhosis Current Visit: Yes Status: Chronic (10) Alcohol abuse Current Visit: Yes Status: Chronic Code(s): F10.10 - ALCOHOL ABUSE, UNCOMPLICATED - Discharge Disposition: Swing Bed @ [facility] Condition: Stable Prescriptions: No Action Omeprazole 20 mg PO DAILY Apixaban [Eliquis 5 mg Tablet] 5 mg PO BID Losartan/Hydrochlorothiazide [Hyzaar 100-12.5 Tablet] 1 tab PO DAILY Ipratropium/Albuterol Sulfate [Iprat-Albut 0.5-3(2.5) mg/3 ml] 1 unit IH QID Budesonide/Formoterol Fumarate [Budesonide-Formoterol 160-4.5] 1 unit IH DAILY glipiZIDE [Glipizide] 5 mg PO DAILY Amlodipine Besylate 5 mg PO DAILY Metoprolol Succinate [Toprol Xl] 200 mg PO DAILY Instructions: Quitting Smoking for Older Adults, Pneumonia, Adult (DC), Preventing Falls in Older Adults Follow up with: SATINDER TROY [ACTIVE STAFF] - SALAS GHOTRA [Primary Care Provider] -
[2022-10-11 13:12] LABS: ANION GAP 6.7 MEQ/L (5-15)
[2022-10-11] MEDS: VANCOMYCIN 1.5 GRAM/300 ML BAG 1.5 GM/300 ML PIGGYBACK IV SCH (17:58)
[2022-10-12] MEDS: DUONEB 0.5-3 MG/3 ml Neb IH SCH ×2 (01:33→07:01)
[2022-10-12 04:56] LABS: Hematocrit 54.2 % (42-50); Hemoglobin 17.3 g/dL (12.5-18.0); Mean Cell Volume 94.9 fL (78-100); Mean Corpuscular Hemoglobin 30.3 pg (26-32); Mean Corpuscular Hgb Concent. 31.9 g/dL (32-36); Platelet Count 296 x10^3/uL (150-450); Red Blood Count 5.71 x10^6/uL (4.1-5.6); White Blood Count 16.5 x10^3/uL (4.0-10.5)
[2022-10-12] MEDS: solu-MEDROL 40 MG, Sterile H2O 10 ml 1 ML IV SCH ×2 (04:59)
[2022-10-12] MEDS: VANCOMYCIN 1.5 GRAM/300 ML BAG 1.5 GM/300 ML PIGGYBACK IV SCH (05:00)
[2022-10-12 05:27] LABS: ALBUMIN 3.3 g/dL (3.5-5.0); ALKALINE PHOSPHATASE 60 U/L (38-126); ANION GAP 7.6 MEQ/L (5-15); BLOOD UREA NITROGEN 39 mg/dL (9-20); CHLORIDE 94 mmol/L (98-107); Calcium 8.5 mg/dL (8.4-10.2); Carbon Dioxide 37 mmol/L (22-30); Creatinine 1 0.82 mg/dL (0.66-1.25); EST GLOMERULAR FILTRATION RATE > 60.0 ML/MIN; Glucose 175 mg/dL (74-106); NT PRO BNP 816 pg/mL (0-900); SGOT/AST 23 U/L (17-59); SGPT/ALT 44 U/L (0-50); SODIUM 135 mmol/L (137-145); Total Protein 6.1 g/dL (6.3-8.2)
[2022-10-12] MEDS: PATIENT OWN MEDICATION IH SCH (07:01)
[2022-10-12 08:02] VITALS: O2SAT 94
[2022-10-12 08:31] VITALS: BP 129/89; PULSE 106
[2022-10-12] MEDS ORDERED: Lasix 40 MG PO SCH (10:00)
[2022-10-12] MEDS: Klor Con PO SCH (10:25)
[2022-10-12] MEDS: Toprol Xl 100 MG PO SCH (10:26)
[2022-10-12] MEDS: hydroDIURIL 25 MG PO SCH (10:26)
[2022-10-12] MEDS: ELIQUIS 2.5 MG TABLET PO SCH (10:26)
[2022-10-12] MEDS: Cozaar 50 MG PO SCH (10:26)
[2022-10-12] MEDS: NORVASC 5 MG PO SCH (10:26)
[2022-10-12] MEDS: Protonix 40MG Tablet PO SCH (10:26)
[2022-10-12] MEDS: Sodium Chloride 0.9% 10 ML FLUSH Syringe IV SCH (10:52)
[2022-10-12] MEDS ORDERED: BETAMETHASONE DIPROPIONATE TOP SCH (11:00)
[2022-10-12] MEDS ORDERED: Acidophilus TABLET PO SCH (11:00)
--- NOTE | 2022-10-12 12:38 | PCM.DS ---
Discharge Summary Date of Admission: 10/05/22 03:30 Admitting Physician: SALAS GHOTRA Consults: Consults on Case 10/05/22 09:09 Consult Pulmonology ROUTINE Primary Care Provider: SALAS GHOTRA Allergies Allergies No Known Drug Allergies Allergy (Verified 10/12/22 11:41) Hospital Summary - Hospital Course Hospital Course: is a 67 year old male pt of mine who came in through ER with PNA and respiratory distress. He has a PMHx COPD, afib (on Eliquis), COPD, HTN, DMII, cirrhosis of the liver, and EtOH abuse. He had been sick for over a week but his couldn't convince him to come to the hospital. He had increased cough and had to stand up in order to breathe. The history was per the medical record and the pt's , who is at bedside. Apparently he was also having MALDONADO and pro ductive cough. Was started on rocephin and zithromax. Pt apparently drinks 2 fifths of alcohol a week, a fact that he was able to hide from his until he started feeling so ill and not leaving the house. He was on Bipap/AVAPs for a day or so, was made SCO by his . Dr. Troy consulted, thank you. His antibiotics were changed to vancomycin and zosyn. He was then found to have MRSA bacteremia. He has remained on bipap at night, but down to 5L O2 oximizer in the day. Is tolerating po well and PT has been consulted. He understandably has muscular deconditioning and will benefit from a swing bed stay while he continues on IV antibiotics (vancomycin). Intially pt wanted to be discharged to home, but now agrees to swing bed stay. - Vitals & Intake/Output Vital Signs: Vital Signs Temperature 97.5 F 10/12/22 08:00 Pulse Rate 106 H 10/12/22 08:00 Respiratory Rate 18 10/12/22 08:00 Blood Pressure 129/89 10/12/22 08:00 O2 Sat by Pulse Oximetry 94 L 10/12/22 08:00 Intake & Output: Intake & Output 10/10/22 10/11/22 10/12/22 10/13/22 11:59 11:59 11:59 11:59 Intake Total 592 1060 Output Total 4500 2100 750 Balance -3908 -2100 310 Weight 119.1 kg - Lab Result Diagrams: 10/12/22 04:30 10/12/22 04:30 Lab Results-Last 24 Hrs: Lab Results-Last 24 Hours 10/11/22 10/11/22 10/11/22 Range/Units 05:35 16:06 21:09 WBC (4.0-10.5) x10^3/uL RBC (4.1-5.6) x10^6/uL Hgb (12.5-18.0) g/dL Hct (42-50) % MCV (78-100) fL MCH (26-32) pg MCHC (32-36) g/dL RDW (11.5-14.0) % Plt Count (150-450) x10^3/uL MPV (7.5-11.0) fL Sodium (137-145) mmol/L Potassium (3.5-5.1) mmol/L Chloride (98-107) mmol/L Carbon Dioxide (22-30) mmol/L Anion Gap 6.7 (5-15) MEQ/L BUN (9-20) mg/dL Creatinine (0.66-1.25) mg/dL Estimated GFR ML/MIN Glucose (74-106) mg/dL POC Glucometer 187 H 166 H (74 to 106) mg/dL Calcium (8.4-10.2) mg/dL Total Bilirubin (0.2-1.3) mg/dL AST (17-59) U/L ALT (0-50) U/L Alkaline Phosphatase (38-126) U/L NT-Pro-B Natriuret Pep (0-900) pg/mL Serum Total Protein (6.3-8.2) g/dL Albumin (3.5-5.0) g/dL 10/12/22 10/12/22 10/12/22 Range/Units 04:30 04:30 07:13 WBC 16.5 H (4.0-10.5) x10^3/uL RBC 5.71 H (4.1-5.6) x10^6/uL Hgb 17.3 (12.5-18.0) g/dL Hct 54.2 H (42-50) % MCV 94.9 (78-100) fL MCH 30.3 (26-32) pg MCHC 31.9 L (32-36) g/dL RDW 13.0 (11.5-14.0) % Plt Count 296 (150-450) x10^3/uL MPV 10.0 (7.5-11.0) fL Sodium 135 L (137-145) mmol/L Potassium 4.0 D (3.5-5.1) mmol/L Chloride 94 L (98-107) mmol/L Carbon Dioxide 37 H (22-30) mmol/L Anion Gap 7.6 (5-15) MEQ/L BUN 39 H (9-20) mg/dL Creatinine 0.82 (0.66-1.25) mg/dL Estimated GFR > 60.0 ML/MIN Glucose 175 H (74-106) mg/dL POC Glucometer 201 H (74 to 106) mg/dL Calcium 8.5 (8.4-10.2) mg/dL Total Bilirubin 1.20 (0.2-1.3) mg/dL AST 23 (17-59) U/L ALT 44 (0-50) U/L Alkaline Phosphatase 60 (38-126) U/L NT-Pro-B Natriuret Pep 816 (0-900) pg/mL Serum Total Protein 6.1 L (6.3-8.2) g/dL Albumin 3.3 L (3.5-5.0) g/dL 10/12/ Range/Units 11:19 WBC (4.0-10.5) x10^3/uL RBC (4.1-5.6) x10^6/uL Hgb (12.5-18.0) g/dL Hct (42-50) % MCV (78-100) fL MCH (26-32) pg MCHC (32-36) g/dL RDW (11.5-14.0) % Plt Count (150-450) x10^3/uL MPV (7.5-11.0) fL Sodium (137-145) mmol/L Potassium (3.5-5.1) mmol/L Chloride (98-107) mmol/L Carbon Dioxide (22-30) mmol/L Anion Gap (5-15) MEQ/L BUN (9-20) mg/dL Creatinine (0.66-1.25) mg/dL Estimated GFR ML/MIN Glucose (74-106) mg/dL POC Glucometer 290 H (74 to 106) mg/dL Calcium (8.4-10.2) mg/dL Total Bilirubin (0.2-1.3) mg/dL AST (17-59) U/L ALT (0-50) U/L Alkaline Phosphatase (38-126) U/L NT-Pro-B Natriuret Pep (0-900) pg/mL Serum Total Protein (6.3-8.2) g/dL Albumin (3.5-5.0) g/dL Micro Results-Entire Visit: Microbiology 10/04/22 07:30 Blood Culture Gram Stain - Final Blood Not Reportable Blood Culture - Final NO GROWTH 10/05/22 04:05 Urine Culture - Final Catherized NO GROWTH 10/04/22 07:10 Blood Culture Gram Stain - Final Blood Blood Culture - Final Methicillin Resist Staph Aur Accuchecks Date 10/12/22 Date 10/11/22 Time 16:14 - Procedures and Test Procedures and Tests throughout Hospitalization: Therapy Orders & Screens 10/04/22 09:33 Oxygen Oxymask LPM 4 lpm Comment: 10/04/22 11:27 RT Screen per Nursing Assess ONCE Comment: Protocol Order Physician Instructions: Greater than 3 points order RT Admission Screen Reason For Exam: Triggered on Admission Diagnosis: COPD Diagnosis: COPD Pneumonia: Yes Home O2: No Asthma: No CHF: No Home CPAP/BIPAP: Yes Home Nebs/MDI: No Total Points: 8 10/04/22 12:43 Smoking Cessation Education ONCE Comment: Diagnosis: COPD Smoking Status: Current every day smoker How long have you smoked: 50 years Have you smoked in the past 12 months: Yes Approximately how many cigarettes per day: 20 Do you dip or chew tobacco: No 10/04/22 12:49 BiPap/CPAP ROUTINE Comment: Pt's own unit per home use Diagnosis: COPD 10/04/22 19:00 Respiratory MDI BID Comment: Diagnosis: COPD 10/10/22 09:15 PT Eval & Treat (MD Order) ONCE Reason for Eval:: weakness Diagnosis: COPD, RESP FAILURE 10/10/22 12:47 OT Eval and Treat (MD Order) ROUTINE Comment: Consulting Provider: Physician Instructions: Reason For Exam: Diagnosis: COPD, RESP FAILURE 10/11/22 10:18 Qualify for Home Oxygen TODAY Comment: Diagnosis: COPD, RESP FAILURE 10/11/22 14:23 Oxygen Nasal Cannula 3 lpm Comment: Diagnosis: COPD, RESP FAILURE Discharge Exam General Appearance: no apparent distress, obese Neurologic Exam: alert, oriented x 3, cooperative Eye Exam: eyes nml inspection Ears, Nose, Throat Exam: moist mucous membranes Neck Exam: normal inspection Respiratory Exam: lungs clear, diminished breath sounds (fair air exchange), No crackles/rales, No rhonchi, No wheezing Cardiovascular Exam: regular rate/rhythm, normal heart sounds, No murmur Gastrointestinal/Abdomen Exam: soft, normal bowel sounds, No tenderness Extremity Exam: normal inspection, No pedal edema, No swelling Skin Exam: normal color, warm, dry, No rash Final Diagnosis/Problem List - Final Discharge Diagnosis/Problem (1) Respiratory distress Status: Resolved Code(s): R06.03 - ACUTE RESPIRATORY DISTRESS (2) MRSA bacteremia Status: Acute Assessment & Plan: Has completed 7d of IV vancomycin; will finish 10-14d total. Added lactobacillus. Code(s): R78.81 - BACTEREMIA; B95.62 - METHICILLIN RESIS STAPH INFCT CAUSING DISEASES CLASSD ELSWHR (3) RLL pneumonia Status: Resolved Code(s): J18.9 - PNEUMONIA, UNSPECIFIED ORGANISM (4) COPD exacerbation Status: Acute Assessment & Plan: much better. On NC now. Code(s): J44.1 - CHRONIC OBSTRUCTIVE PULMONARY DISEASE W (ACUTE) EXACERBATION (5) Pulmonary edema Status: Resolved Code(s): J81.1 - CHRONIC PULMONARY EDEMA (6) Atrial fibrillation Status: Chronic Code(s): I48.91 - UNSPECIFIED ATRIAL FIBRILLATION (7) HTN (hypertension) Status: Chronic Code(s): I10 - ESSENTIAL (PRIMARY) HYPERTENSION (8) Diabetes mellitus type II, controlled Status: Chronic Code(s): E11.9 - TYPE 2 DIABETES MELLITUS WITHOUT COMPLICATIONS (9) Cirrhosis Status: Chronic (10) Alcohol abuse Status: Chronic Code(s): F10.10 - ALCOHOL ABUSE, UNCOMPLICATED - Discharge Disposition: Swing Bed @ [facility] Condition: Stable Prescriptions: No Action Omeprazole 20 mg PO DAILY Apixaban [Eliquis 5 mg Tablet] 5 mg PO BID Losartan/Hydrochlorothiazide [Hyzaar 100-12.5 Tablet] 1 tab PO DAILY Ipratropium/Albuterol Sulfate [Iprat-Albut 0.5-3(2.5) mg/3 ml] 1 unit IH QID Budesonide/Formoterol Fumarate [Budesonide-Formoterol 160-4.5] 1 unit IH DAILY glipiZIDE [Glipizide] 5 mg PO DAILY Amlodipine Besylate 5 mg PO DAILY Metoprolol Succinate [Toprol Xl] 200 mg PO DAILY Instructions: Quitting Smoking for Older Adults, Pneumonia, Adult (DC), Preventing Falls in Older Adults Follow up with: SATINDER TROY [ACTIVE STAFF] - SALAS GHOTRA [Primary Care Provider] -
[2022-10-12] MEDS ORDERED: solu-MEDROL 40 MG, Sterile H2O 10 ml 1 ML IV SCH ×2 (18:00)
== END 2022-10-12 10:55 | disposition swing bed (61) | DRG 204 ==
LOC: ED 06:57 → MED SURG 10:10 → OBSVTOIN 10-05 03:30 → ICU 10-05 07:30 → MED SURG 10-10 13:46
PROVIDERS: ADMIT Family Medicine; ATTEND Family Medicine
DX: R06.03 Acute respiratory distress (principal); J18.9 Pneumonia, unspecified organism; R78.81 Bacteremia; J44.1 Chronic obstructive pulmonary disease with (acute) exacerbation; J81.1 Chronic pulmonary edema; B95.62 Methicillin resistant Staphylococcus aureus infection as the cause of diseases classified elsewhere; I48.91 Unspecified atrial fibrillation; I10 Essential (primary) hypertension; E11.9 Type 2 diabetes mellitus without complications; K74.60 Unspecified cirrhosis of liver; G47.33 Obstructive sleep apnea (adult) (pediatric); R79.89 Other specified abnormal findings of blood chemistry; Z72.0 Tobacco use; Z79.01 Long term (current) use of anticoagulants; Z79.899 Other long term (current) drug therapy; Z20.828 Contact with and (suspected) exposure to other viral communicable diseases
CPT/HCPCS: 0241U; 36415; 36600; 71045; 71250; 80053; 80202; 82375; 82803; 82947; 83036; 83605; 83880; 84145; 84484; 85025; 85027; 85610; 85730; 87040; 87077; 87086; 87186; 93005; 93268; 94002; 94003; 94640; 94762; 96365; 96367; 97110; 97161; 97165; 97530; 99285; 99291; G0378; G0480; 80307; J0456; J0696; J1650; J1817; J1940; J2060; J2270; J2543; J2920; J2930; J7609; A9270-GY; J3370

== ENCOUNTER 2022-10-12 10:56 | Inpatient (IN) | payer MEDICARE ==
[2022-10-12] MEDS ORDERED: Ativan 2 MG/1 ML VIAL IV PRN (11:47)
[2022-10-12] MEDS ORDERED: Aplisol ID ONE (11:47)
[2022-10-12] MEDS ORDERED: Zofran 4 MG/2 ML VIAL IV PRN (11:47)
[2022-10-12] MEDS ORDERED: Sodium Chloride 0.9% 10 ML FLUSH Syringe IV PRN (11:47)
[2022-10-12] MEDS ORDERED: MOTRIN 600 MG PO PRN (11:47)
[2022-10-12] MEDS: HUMALOG SQ PRN ×2 (12:03→21:41)
[2022-10-12] MEDS: DUONEB 0.5-3 MG/3 ml Neb IH SCH ×2 (12:42→18:41)
[2022-10-12] MEDS: Sodium Chloride 0.9% 10 ML FLUSH Syringe IV SCH ×2 (16:01→22:15)
[2022-10-12] MEDS: Acidophilus TABLET PO SCH ×2 (16:01→21:40)
[2022-10-12] MEDS: VANCOMYCIN 1.5 GRAM/300 ML BAG 1.5 GM/300 ML PIGGYBACK IV SCH (18:40)
[2022-10-12] MEDS: solu-MEDROL 40 MG, Sterile H2O 10 ml 1 ML IV SCH ×2 (18:41)
[2022-10-12] MEDS: PATIENT OWN MEDICATION IH SCH (18:42)
[2022-10-12] MEDS: ELIQUIS 2.5 MG TABLET PO SCH (21:40)
[2022-10-12] MEDS: Klor Con PO SCH (21:41)
[2022-10-12] MEDS: BETAMETHASONE DIPROPIONATE TOP SCH (21:42)
[2022-10-13] MEDS: DUONEB 0.5-3 MG/3 ml Neb IH SCH ×4 (01:17→19:13)
[2022-10-13] MEDS: solu-MEDROL 40 MG, Sterile H2O 10 ml 1 ML IV SCH ×4 (06:19→19:07)
[2022-10-13] MEDS: VANCOMYCIN 1.5 GRAM/300 ML BAG 1.5 GM/300 ML PIGGYBACK IV SCH ×2 (06:19→19:08)
[2022-10-13] MEDS: PATIENT OWN MEDICATION IH SCH ×2 (06:25→19:16)
[2022-10-13] MEDS: Sodium Chloride 0.9% 10 ML FLUSH Syringe IV SCH ×3 (06:47→22:35)
[2022-10-13] MEDS: Klor Con PO SCH ×2 (10:42→22:34)
[2022-10-13] MEDS: ELIQUIS 2.5 MG TABLET PO SCH ×2 (10:43→22:34)
[2022-10-13] MEDS: hydroDIURIL 25 MG PO SCH (10:43)
[2022-10-13] MEDS: Acidophilus TABLET PO SCH ×3 (10:43→22:34)
[2022-10-13] MEDS: Protonix 40MG Tablet PO SCH (10:43)
[2022-10-13] MEDS: NORVASC 5 MG PO SCH (10:43)
[2022-10-13] MEDS: Toprol Xl 100 MG PO SCH (10:43)
[2022-10-13] MEDS: Lasix 40 MG PO SCH (10:44)
[2022-10-13] MEDS: Cozaar 50 MG PO SCH (10:44)
[2022-10-13] MEDS: BETAMETHASONE DIPROPIONATE TOP SCH ×2 (10:47→22:34)
[2022-10-13 13:54] LABS: Hematocrit 53.5 % (42-50); Hemoglobin 17.1 g/dL (12.5-18.0); Mean Cell Volume 95.9 fL (78-100); Mean Corpuscular Hemoglobin 30.6 pg (26-32); Platelet Count 280 x10^3/uL (150-450); Red Blood Count 5.58 x10^6/uL (4.1-5.6); White Blood Count 22.7 x10^3/uL (4.0-10.5)
[2022-10-13 14:07] LABS: ALBUMIN 3.3 g/dL (3.5-5.0); ALKALINE PHOSPHATASE 79 U/L (38-126); ANION GAP 8.3 MEQ/L (5-15); BLOOD UREA NITROGEN 34 mg/dL (9-20); CHLORIDE 98 mmol/L (98-107); Calcium 8.7 mg/dL (8.4-10.2); Carbon Dioxide 34 mmol/L (22-30); Creatinine 1 0.91 mg/dL (0.66-1.25); EST GLOMERULAR FILTRATION RATE > 60.0 ML/MIN; Glucose 246 mg/dL (74-106); Potassium 4.3 mmol/L (3.5-5.1); SGOT/AST 21 U/L (17-59); SGPT/ALT 46 U/L (0-50); SODIUM 136 mmol/L (137-145); Total Protein 6.1 g/dL (6.3-8.2)
[2022-10-14] MEDS: DUONEB 0.5-3 MG/3 ml Neb IH SCH ×4 (01:07→19:26)
[2022-10-14] MEDS ORDERED: TROUGH DRUG LEVELS IJ ONE (05:30)
[2022-10-14] MEDS ORDERED: solu-MEDROL ONE (06:39)
[2022-10-14] MEDS: solu-MEDROL 40 MG, Sterile H2O 10 ml 1 ML IV SCH ×4 (06:53→18:19)
[2022-10-14] MEDS: PATIENT OWN MEDICATION IH SCH ×2 (07:25→19:31)
[2022-10-14] MEDS: VANCOMYCIN 1.5 GRAM/300 ML BAG 1.5 GM/300 ML PIGGYBACK IV SCH ×2 (07:41→18:19)
[2022-10-14] MEDS: Sodium Chloride 0.9% 10 ML FLUSH Syringe IV SCH ×3 (10:51→22:50)
[2022-10-14] MEDS: Cozaar 50 MG PO SCH (10:52)
[2022-10-14] MEDS: Toprol Xl 100 MG PO SCH (10:52)
[2022-10-14] MEDS: Acidophilus TABLET PO SCH ×3 (10:53→22:21)
[2022-10-14] MEDS: Protonix 40MG Tablet PO SCH (10:53)
[2022-10-14] MEDS: ELIQUIS 2.5 MG TABLET PO SCH ×2 (10:53→22:21)
[2022-10-14] MEDS: Lasix 40 MG PO SCH (10:53)
[2022-10-14] MEDS: Klor Con PO SCH ×2 (10:53→22:21)
[2022-10-14] MEDS: BETAMETHASONE DIPROPIONATE TOP SCH ×2 (10:53→22:21)
[2022-10-14] MEDS: NORVASC 5 MG PO SCH (10:53)
[2022-10-14] MEDS: hydroDIURIL 25 MG PO SCH (10:54)
[2022-10-14] MEDS ORDERED: DUONEB 0.5-3 MG/3 ml Neb IH ONE (19:24)
[2022-10-14] MEDS ORDERED: Mylicon 80MG PO PRN (21:00)
[2022-10-15] MEDS: VANCOMYCIN 1.5 GRAM/300 ML BAG 1.5 GM/300 ML PIGGYBACK IV SCH ×2 (06:28→18:24)
[2022-10-15] MEDS: solu-MEDROL 40 MG, Sterile H2O 10 ml 1 ML IV SCH ×4 (06:28→18:24)
[2022-10-15] MEDS: DUONEB 0.5-3 MG/3 ml Neb IH SCH ×3 (07:24→19:07)
[2022-10-15] MEDS: PATIENT OWN MEDICATION IH SCH ×2 (07:24→19:07)
[2022-10-15] MEDS: Lasix 40 MG PO SCH (09:39)
[2022-10-15] MEDS: Acidophilus TABLET PO SCH ×3 (09:39→22:50)
[2022-10-15] MEDS: ELIQUIS 2.5 MG TABLET PO SCH ×2 (09:40→22:50)
[2022-10-15] MEDS: Toprol Xl 100 MG PO SCH (09:40)
[2022-10-15] MEDS: Klor Con PO SCH ×2 (09:40→22:50)
[2022-10-15] MEDS: NORVASC 5 MG PO SCH (09:41)
[2022-10-15] MEDS: Cozaar 50 MG PO SCH (09:42)
[2022-10-15] MEDS: hydroDIURIL 25 MG PO SCH (09:43)
[2022-10-15] MEDS: Protonix 40MG Tablet PO SCH (09:43)
[2022-10-15] MEDS: BETAMETHASONE DIPROPIONATE TOP SCH ×2 (09:45→22:50)
[2022-10-16] MEDS ORDERED: TROUGH DRUG LEVELS IJ ONE (05:30)
[2022-10-16] MEDS ORDERED: solu-MEDROL ONE (06:28)
[2022-10-16] MEDS: solu-MEDROL 40 MG, Sterile H2O 10 ml 1 ML IV SCH ×4 (06:44→17:41)
[2022-10-16] MEDS: VANCOMYCIN 1.5 GRAM/300 ML BAG 1.5 GM/300 ML PIGGYBACK IV SCH ×2 (06:49→17:40)
[2022-10-16] MEDS: DUONEB 0.5-3 MG/3 ml Neb IH SCH ×3 (07:01→19:17)
[2022-10-16] MEDS: PATIENT OWN MEDICATION IH SCH ×2 (07:01→19:17)
[2022-10-16] MEDS: Cozaar 50 MG PO SCH (10:02)
[2022-10-16] MEDS: Acidophilus TABLET PO SCH ×3 (10:02→22:20)
[2022-10-16] MEDS: Lasix 40 MG PO SCH (10:03)
[2022-10-16] MEDS: Klor Con PO SCH ×2 (10:03→22:20)
[2022-10-16] MEDS: NORVASC 5 MG PO SCH (10:03)
[2022-10-16] MEDS: ELIQUIS 2.5 MG TABLET PO SCH ×2 (10:03→22:20)
[2022-10-16] MEDS: Toprol Xl 100 MG PO SCH (10:04)
[2022-10-16] MEDS: Protonix 40MG Tablet PO SCH (10:05)
[2022-10-16] MEDS: BETAMETHASONE DIPROPIONATE TOP SCH ×2 (10:05→22:20)
[2022-10-16] MEDS: hydroDIURIL 25 MG PO SCH (10:05)
[2022-10-16] MEDS: Sodium Chloride 0.9% 10 ML FLUSH Syringe IV SCH ×3 (14:55→22:21)
[2022-10-16] MEDS: HUMALOG SQ PRN (22:23)
[2022-10-17] MEDS: solu-MEDROL 40 MG, Sterile H2O 10 ml 1 ML IV SCH ×2 (05:49)
[2022-10-17] MEDS: VANCOMYCIN 1.5 GRAM/300 ML BAG 1.5 GM/300 ML PIGGYBACK IV SCH (05:49)
[2022-10-17] MEDS: DUONEB 0.5-3 MG/3 ml Neb IH SCH (07:00)
[2022-10-17] MEDS: PATIENT OWN MEDICATION IH SCH (07:01)
[2022-10-17 08:34] VITALS: BP 119/83; PULSE 80; O2SAT 92
[2022-10-17] MEDS: Cozaar 50 MG PO SCH (08:49)
[2022-10-17] MEDS: Klor Con PO SCH (08:50)
[2022-10-17] MEDS: NORVASC 5 MG PO SCH (08:50)
[2022-10-17] MEDS: Acidophilus TABLET PO SCH (08:50)
[2022-10-17] MEDS: hydroDIURIL 25 MG PO SCH (08:51)
[2022-10-17] MEDS: Toprol Xl 100 MG PO SCH (08:52)
[2022-10-17] MEDS: Lasix 40 MG PO SCH (08:52)
[2022-10-17] MEDS: ELIQUIS 2.5 MG TABLET PO SCH (08:53)
[2022-10-17] MEDS: Protonix 40MG Tablet PO SCH (08:53)
--- NOTE | 2022-10-17 09:12 | PCM.DS ---
Discharge Summary Date of Admission: 10/12/22 10:58 Admitting Physician: SALAS GHOTRA Primary Care Provider: SALAS GHOTRA Allergies Allergies No Known Drug Allergies Allergy (Verified 10/12/22 11:41) Hospital Summary - Hospital Course Hospital Course: Pt was admitted to swing bed for deconditioning related to MRSA bacteremia. He also had pneumonia/copd exacerbation and had presented in respiratory distress for his acute bed stay. He is feeling well. O2 down to 2L NC in the day (using Trilogy machine at night). Caitlin po well. Up to bathroom by himself. He is on day #13 of Vancomycin so will go home today without any antibiotics. F/u with me in 1 week. We discussed the fact that he must stop drinking - pt seems ready to stop. - Vitals & Intake/Output Vital Signs: Vital Signs Temperature 97.9 F 10/17/22 08:00 Pulse Rate 80 10/17/22 08:00 Respiratory Rate 16 10/17/22 08:00 Blood Pressure 119/83 10/17/22 08:00 O2 Sat by Pulse Oximetry 92 L 10/17/22 08:00 Intake & Output: Intake & Output 10/14/22 10/15/22 10/16/22 10/17/22 11:59 11:59 11:59 11:59 Intake Total 780 608 580 960 Output Total 400 Balance 780 208 580 960 Weight 121.2 kg 121.2 kg - Lab Result Diagrams: 10/13/22 13:53 10/13/22 13:53 Lab Results-Last 24 Hrs: Lab Results-Last 24 Hours 10/16/22 10/16/22 10/16/22 Range/Units 11:20 16:07 20:37 POC Glucometer 211 H 142 H 207 H (74 to 106) mg/dL 10/17/22 Range/Units 07:30 POC Glucometer 139 H (74 to 106) mg/dL Micro Results-Entire Visit: Accuchecks Date 10/17/22 Date 10/16/22 Date 10/16/22 Date 10/16/22 Time 07:37 Time 20:45 Time 11:37 - Procedures and Test Procedures and Tests throughout Hospitalization: Therapy Orders & Screens 10/12/22 11:47 BiPap/CPAP ROUTINE Comment: Pt's own unit per home use Diagnosis: COPD Oxygen Nasal Cannula 3 lpm Comment: Diagnosis: COPD, RESP FAILURE Respiratory MDI BID Comment: Diagnosis: COPD 10/12/22 12:00 OT Eval and Treat ( Order) ONCE Comment: Consulting Provider: Physician Instructions: Reason For Exam: Evaluate: Yes Treat: Yes Reason for Evaluation: DECONDITIONING R/T SEPTICEMIA, COPD, RESP FAILURE PT Eval & Treat ( Order) ONCE Reason for Eval:: DECONDITIONING R/T SEPTICEMIA, COPD, RESP FAILURE Diagnosis: DECONDITIONING R/T SEPTICEMIA, COPD, RESP FAILURE 10/12/22 12:46 Respiratory Therapy Assessment DAILY Comment: Diagnosis: DECONDITIONING R/T SEPTICEMIA, COPD, RESP FAILURE 10/12/22 14:36 PT Clarification Order ROUTINE Comment: Physician Instructions: Reason For Exam: PT Clarification: P.T. TO RX 5X/WK UNTIL D/C TO ADDRESS FUNCTIONAL MOBILITY AND GAIT TRAINING, THER EX, BALANCE AND ENDURANCE ACTIVITIES, WELL PT. ED. RE: HEP, PROPER BREATHING, AND ENERGY CONSERVATION TO MAZIMIZE FUNCTIONAL POTENTIAL FOR SAFE RE TURN HOME. 10/12/22 16:14 OT Clarification Order ROUTINE Comment: Physician Instructions: Reason For Exam: OT Clarification: O.T. TO TREAT PATIENT 5X/WEEK INCLUDING THERAPEUTIC EXERCISE, THERAPEUTIC ACTIVITY/ADL, FUNCTIONAL STRENGTH AND ENDURANCE, AND AE/AD/DME EDUCATIO N AND TRAINING TO ADDRESS INDEPENDENCE AND SAFETY WITH I/ADLS IN ORDER TO PROMOTE SAFE RETURN HOME WITH . Discharge Exam General Appearance: no apparent distress, obese Neurologic Exam: alert, oriented x 3, cooperative Eye Exam: eyes nml inspection Ears, Nose, Throat Exam: moist mucous membranes Neck Exam: normal inspection Respiratory Exam: lungs clear, wheezing (occ inspiratory noise), No normal breath sounds (fair air exchange), No crackles/rales, No rhonchi Cardiovascular Exam: regular rate/rhythm, normal heart sounds, No murmur Gastrointestinal/Abdomen Exam: soft, No tenderness, No distention, No mass, No guarding, No rebound Back Exam: normal inspection, No rash Extremity Exam: normal inspection, swelling (pretibial edema bilat, 1+ on R, trace on L) Skin Exam: normal color, warm, dry, No rash Final Diagnosis/Problem List - Final Discharge Diagnosis/Problem (1) Muscular deconditioning Current Visit: Yes Status: Resolved Assessment & Plan: Appears to have done well with rehab. Code(s): R29.898 - OTH SYMPTOMS AND SIGNS INVOLVING THE MUSCULOSKELETAL SYSTEM (2) MRSA bacteremia Current Visit: No Status: Resolved Code(s): R78.81 - BACTEREMIA; B95.62 - METHICILLIN RESIS STAPH INFCT CAUSING DISEASES CLASSD ELSWHR (3) COPD exacerbation Current Visit: No Status: Resolved Assessment & Plan: Will need to f/u with Dr. Benson as well. Thank you. Code(s): J44.1 - CHRONIC OBSTRUCTIVE PULMONARY DISEASE W (ACUTE) EXACERBATION (4) Pneumonia Current Visit: No Status: Resolved Code(s): J18.9 - PNEUMONIA, UNSPECIFIED ORGANISM (5) Alcohol abuse Current Visit: No Status: Chronic Assessment & Plan: pt plans to quite. Code(s): F10.10 - ALCOHOL ABUSE, UNCOMPLICATED (6) Atrial fibrillation Current Visit: No Status: Chronic Code(s): I48.91 - UNSPECIFIED ATRIAL FIBRILLATION (7) Cirrhosis Current Visit: No Status: Chronic (8) Diabetes mellitus type II, controlled Current Visit: No Status: Chronic Code(s): E11.9 - TYPE 2 DIABETES MELLITUS WITHOUT COMPLICATIONS (9) HTN (hypertension) Current Visit: No Status: Chronic Code(s): I10 - ESSENTIAL (PRIMARY) HYPERTENSION - Discharge Disposition: Home, Self-Care Condition: Good Prescriptions: New Betamethasone Dipropionate 1 gm TOP BID 30 Days #60 gum Prednisone 20 mg [Deltasone 20 mg] 20 mg PO DAILY #17 tablet Hydrochlorothiazide 25 mg [hydroDIURIL 25 MG] 12.5 mg PO DAILY 30 Days #30 tablet Potassium Chloride Tab* [Klor Con] 20 meq PO BID 30 Days #60 tablet Furosemide 40 mg [Lasix 40 MG] 40 mg PO DAILY 30 Days #30 tablet Continue Omeprazole 20 mg PO DAILY Apixaban [Eliquis 5 mg Tablet] 5 mg PO BID Losartan/Hydrochlorothiazide [Hyzaar 100-12.5 Tablet] 1 tab PO DAILY Ipratropium/Albuterol Sulfate [Iprat-Albut 0.5-3(2.5) mg/3 ml] 1 unit IH QID Budesonide/Formoterol Fumarate [Budesonide-Formoterol 160-4.5] 1 unit IH DAILY glipiZIDE [Glipizide] 5 mg PO DAILY Amlodipine Besylate 5 mg PO DAILY Metoprolol Succinate [Toprol Xl] 200 mg PO DAILY Follow up with: SALAS GHOTRA [Primary Care Provider] -
[2022-10-18] MEDS ORDERED: TROUGH DRUG LEVELS IJ ONE (05:30)
== END 2022-10-17 11:05 | disposition home health service (06) | DRG 555 ==
LOC: MED SURG 10:58
PROVIDERS: ADMIT Family Medicine; ATTEND Family Medicine
DX: R29.898 Other symptoms and signs involving the musculoskeletal system (principal); J18.9 Pneumonia, unspecified organism; R78.81 Bacteremia; J44.1 Chronic obstructive pulmonary disease with (acute) exacerbation; B95.62 Methicillin resistant Staphylococcus aureus infection as the cause of diseases classified elsewhere; F10.10 Alcohol abuse, uncomplicated; I48.91 Unspecified atrial fibrillation; K74.60 Unspecified cirrhosis of liver; E11.9 Type 2 diabetes mellitus without complications; Z79.899 Other long term (current) drug therapy; Z20.828 Contact with and (suspected) exposure to other viral communicable diseases; Z79.01 Long term (current) use of anticoagulants
CPT/HCPCS: 36415; 80053; 80202; 82140; 82947; 85027; 94640; 94760; J1817; J2920; 97110-GP; A9270-GY; J3370

== ENCOUNTER 2025-02-27 10:26 | Day surgery (SDC) | payer MEDICARE ==
[2025-02-27] MEDS ORDERED: CEFAZOLIN 2 GM/100 ML NaCl 2 GM/100 ML IVPB IV ONE (10:51)
[2025-02-27] MEDS: CEFAZOLIN 2 GM/100 ML NaCl 2 GM/100 ML IVPB IV SCH (10:58)
[2025-02-27] MEDS: Sodium Chloride 0.9% 1000 ML 1,000 ML IV SCH (10:58)
[2025-02-27] MEDS ORDERED: DUONEB 0.5-3 MG/3 ml Neb IH ONE (11:03)
[2025-02-27] MEDS: DUONEB 0.5-3 MG/3 ml Neb IH ONE (11:05)
[2025-02-27 11:25] LABS: Absolute Neutrophil Ct (ANC) 4.99 x10^3/uL (1.78-5.38); BASOPHIL % 0.7 % (0.2-1.2); Basophil (Absolute #) 0.05 x10^3/uL (0.01-0.08); Eosinophil % 0.7 % (0.8-7.0); Eosinophil (Absolute #) 0.05 x10^3/uL (0.04-0.54); Hematocrit 49.6 % (40.1-51.0); Hemoglobin 16.4 g/dL (13.7-17.5); IMMATURE GRAN # 0.03 x10^3u/L (0.001-0.031); IMMATURE GRAN % 0.4 % (0.001-0.429); Lymphocyte (Absolute #) 1.62 x10^3/uL (1.32-3.57); Lymphocytes % 22.3 % (21.8-53.1); Mean Cell Volume 94.8 fL (79.0-92.2); Mean Corpuscular Hemoglobin 31.4 pg (25.7-32.2); Mean Corpuscular Hgb Concent. 33.1 g/dL (32.3-36.5); Mean Platelet Volume 9.8 fL (9.4-12.4); Monocyte (Absolute #) 0.53 x10^3/uL (0.30-0.82); Monocytes % 7.3 % (5.3-12.2); Neutrophil % 68.6 % (34.0-67.9); Platelet Count 185 x10^3/uL (163-337); Red Blood Count 5.23 x10^6/uL (4.63-6.08); White Blood Count 7.3 x10^3/uL (4.23-9.07)
[2025-02-27 12:03] LABS: ANION GAP 14.4 MEQ/L (5-15); BILIRUBIN,TOTAL 1.7 mg/dL (0.2-1.3); Calcium 8.7 mg/dL (8.4-10.2); Creatinine 1 1.07 mg/dL (0.66-1.25); EST GLOMERULAR FILTRATION RATE 76.1 ML/MIN; Potassium 4.5 mmol/L (3.5-5.1); Total Protein 6.3 g/dL (6.3-8.2)
[2025-02-27] MEDS ORDERED: Lactated Ringers 1,000 ML IV ONE (14:06)
[2025-02-27] MEDS ORDERED: Xylocaine 1% Vial 30 ML PF IJ ONE (14:06)
[2025-02-27] MEDS ORDERED: Marcaine Mpf 0.5% Vial 30 Ml ONE (14:06)
[2025-02-27] MEDS ORDERED: Versed 2 MG/2 ML Injection ONE (14:10)
[2025-02-27] MEDS ORDERED: propofoL IV ONE ×2 (14:10→14:31)
[2025-02-27] MEDS ORDERED: Ketamine HCl 50 MG/ML ONE (14:12)
[2025-02-27] MEDS ORDERED: MINERAL OIL LIGHT 10 ML FOR SURGERY ONE (14:28)
[2025-02-27] MEDS ORDERED: SUBLIMAZE 100 MCG/2 ML ONE (15:09)
[2025-02-27] MEDS ORDERED: PHENYLEPHRINE HCL ONE (15:16)
[2025-02-27] MEDS ORDERED: Thrombin-JMI 5000 UNITS TP ONE (15:27)
[2025-02-27 17:03] VITALS: PULSE 72; RESP 18; O2SAT 94
[2025-02-27 17:05] VITALS: BP 135/76; TEMP 97.8
--- NOTE | 2025-02-28 10:54 | OP ---
SURGERY DATE/TIME: 02/27/2025 [id number] PREOPERATIVE DIAGNOSES: 1) Chronic venous insufficiency ulcer. 2) Diabetic foot ulcer. 3) Uncontrolled diabetes. 4) Right leg pain. POSTOPERATIVE DIAGNOSES: 1) Chronic venous insufficiency ulcer. 2) Diabetic foot ulcer. 3) Uncontrolled diabetes. 4) Right leg pain. PROCEDURES: 1) Wound debridement, right leg to level of subcutaneous. 2) Split-thickness skin graft from the right thigh to right leg. SURGEON: Akshat Cabral MD TYRE RETREADER: TACHO Wilson and Aury Marrero ANESTHESIA: General anesthesia with LMA. HEMOSTASIS: Pressure dressing. ESTIMATED BLOOD LOSS: Approximately 5 mL. MATERIALS: 3-0 nylon. INJECTABLES: 10 mL of 1% lidocaine with epinephrine. INDICATIONS FOR PROCEDURE: The patient is a very pleasant, 69-year-old male, very well known to our service for a chronic nonhealing ulcer to the right lower extremity. Patient has had significant difficulty in healing this, failing many conservative modalities including and not limited to antibiotics, wound debridement, routine wound care, synthetic skin substitutes and delayed primary closure. From that standpoint, patient has failed this and is indicated to proceed with a split-thickness skin graft at this time. Given this option maravilla very little bridges in order to get the wound healed if successful. Patient has been made aware of all risks, complications and benefits of surgical intervention at this time. The most significant of which doing general anesthesia in this patient's case given his significant pulmonary dysfunction. This has been assessed and with risk stratification an LMA seems the safest route for this patient. In addition to this, from a local perspective, patient has been made aware of all risks, complications and benefits including but not limited to infection, hematoma, seroma, possibility of delayed wound healing, non-wound healing, and possible failure of surgical intervention. Plenty of time was allowed for the patient to ask questions to his apparent satisfaction. No guarantees were provided as to the outcome of the surgical intervention. It is at this time we decided to proceed. DESCRIPTION OF PROCEDURE AND FINDINGS: Patient was brought into the operating room, placed on the operating room table in the supine position. At this time, general anesthesia was administered via an LMA. Once this was performed, the patient was adequately sedated. The right lower extremity was prepped and draped in the typical sterile fashion. At this time, attention was directed to the right lower extremity where the wound was debrided utilizing a curette, measuring the wound postoperatively at 1 cm x 0.9 cm. From that standpoint, the wound did have a healthy bleeding base and all necrotic and nonviable tissue was removed from the surgical site. At this time, copious amounts of sterile saline were utilized to flush the surgical site. The split-thickness skin graft was then harvested from the right thigh utilizing a 1-inch blade with the dermatome set to 1/16 of an inch. Once approximately 2 inches of graft was harvested, it was run through the to 1:1.5 mesher. Once this was performed, topical thrombin was applied to the donor plate and then the graft was then sutured to the wound base under minimal tension. Following this, a dressing consisting of Betadine, Adaptic, 4 x 4, Kerlix and Fredrick was applied to the right lower extremity and then, the thigh wound was covered utilizing triple antibiotic, Adaptic, 4 x 4 and Tegaderm. Once this was applied, the patient was reversed from anesthesia, returned to the postoperative anesthesia care unit with vital signs stable and vascular status intact. Patient handled the anesthesia as well as the procedure without significant complication. Postoperative orders as indicated in the patient's discharge chart.
== END 2025-02-27 17:03 | disposition home or self-care (01) ==
LOC: SDC 10:26
PROVIDERS: ATTEND Podiatrist Foot & Ankle Surgery
DX: E11.621 Type 2 diabetes mellitus with foot ulcer (principal); I87.2 Venous insufficiency (chronic) (peripheral); M79.604 Pain in right leg; I10 Essential (primary) hypertension; Z86.79 Personal history of other diseases of the circulatory system
CPT/HCPCS: 11042; 15100; 36415; 80053; 85025; 93005; 94640; J0690; J2250; J2371; J2704; J3010; A9270-GY